=== PATIENT | male | born 1955 | race Hispanic/Latino ===

== ENCOUNTER 2018-10-02 22:38 | Emergency (ER) | payer MEDICAID, SELFPAY ==
[2018-10-02] MEDS ORDERED: TETANUS & DIPHTHERIA TOX,ADULT 0.5 ML VIAL ONE (23:05)
[2018-10-02] MEDS ORDERED: LIDOCAINE 1% MPF 5 ML VIAL ONE (23:05)
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
== END 2018-10-03 01:56 | disposition home or self-care (01) ==
LOC: ER 22:38
PROC: 0JQ00ZZ Repair Scalp Subcutaneous Tissue and Fascia, Open Approach (ICD-10-PCS; principal; 2018-10-02)
DX: S01.01XA Laceration without foreign body of scalp, initial encounter (principal); S00.90XA Unspecified superficial injury of unspecified part of head, initial encounter; V19.3XXA Pedal cyclist (driver) (passenger) injured in unspecified nontraffic accident, initial encounter; Y93.55 Activity, bike riding; I10 Essential (primary) hypertension; J45.909 Unspecified asthma, uncomplicated; Z23 Encounter for immunization
CPT/HCPCS: 70450; 72125; 90471; 90714; 99285

== ENCOUNTER 2018-10-03 16:47 | Emergency (ER) | payer SELFPAY ==
[2018-10-03] MEDS ORDERED: HYDROCODONE/APAP 10/325 TAB ONE (17:25)
--- NOTE | 2018-10-03 18:19 | RAD REPORT ---
EXAM DESCRIPTION: RAD - Shoulder Left 2 View - 10/03/2018 6:07 pm CLINICAL HISTORY: PAIN COMPARISON: No comparisons FINDINGS: Mild AC joint degenerative changes are present. No acute fracture or dislocation. The acro mion process is laterally downsloping with narrowing of the subacromial outlet.
--- NOTE | 2018-10-03 18:21 | RAD REPORT ---
EXAM DESCRIPTION: RAD - Elbow Right 3 View - 10/03/2018 6:07 pm CLINICAL HISTORY: PAIN COMPARISON: <Comparisons> FINDINGS: Pronounced degenerative change with deformity is seen involving the elbow. This limits sen sitivity for fracture. Within this limitation, no acute fractures demonstrated.
--- NOTE | 2018-10-03 18:21 | RAD REPORT ---
EXAM DESCRIPTION: RAD - Elbow Left 3 View - 10/03/2018 6:07 pm CLINICAL HISTORY: PAIN COMPARISON: <Comparisons> FINDINGS: Pronounced degenerative change involves the elbow. This limits radiographic sensitivity fo r fracture. Within this limitation, no acute fracture or dislocation identified.
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
[2018-10-06 15:42] VITALS: BP 187/94; TEMP 99.2; O2SAT 97
== END 2018-10-03 19:27 | disposition home or self-care (01) ==
LOC: ER 16:47
DX: M25.522 Pain in left elbow (principal); M25.521 Pain in right elbow; M25.512 Pain in left shoulder; J45.909 Unspecified asthma, uncomplicated; I10 Essential (primary) hypertension
CPT/HCPCS: 99284

== ENCOUNTER 2023-01-23 01:16 | Emergency (ER) | payer OTHER, SELFPAY ==
[2023-01-23] MEDS ORDERED: KETOROLAC 30 MG/ML INJ ONE (01:44)
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
--- NOTE | 2023-01-23 02:22 | ER ---
Nurse's Notes [facility] Name: Jabier Ford Age: 67 yrs Sex: Male : 1955 Arrival Date: 01/23/2023 Time: 01:16 Bed 17 Private MD: Diagnosis: Nondisplaced fracture of lateral condyle of right tibia, initial encounter for closed fracture Presentation: 01/23 01:29 Chief complaint: EMS states: Pt fell 2 days ago and continues to have right knee pain. jb4 Coronavirus screen: At this time, the client does not indicate any symptoms associated with coronavirus-19. Ebola Screen: No symptoms or risks identified at this time. Initial Sepsis Screen: Does the patient meet any 2 criteria? No. Patient's initial sepsis screen is negative. Does the patient have a suspected source of infection? No. Patient's initial sepsis screen is negative. Risk Assessment: Do you want to hurt yourself or someone else? Patient reports no desire to harm self or others. Onset of symptoms was January 21, 2023. Transition of care: patient was not received from another setting of care. 01:29 Method Of Arrival: EMS: [facility] jb4 01:29 Acuity: MONA 4 jb4 Historical: - Allergies: 01:32 No Known Allergies; jb4 - PMHx: 01:32 Arthritis; Asthma; Hypertension; jb4 Screenin:15 [facility] ED Fall Risk Assessment (Adult) History of falling in the last 3 months, jb4 including since admission No falls in past 3 months (0 pts) Confusion or Disorientation No (0 pts). Abuse screen: Denies threats or abuse. Nutritional screening: No deficits noted. Tuberculosis screening: No symptoms or risk factors identified. Assessment: 01:25 General: Appears in no apparent distress. uncomfortable, Behavior is calm, cooperative, jb4 appropriate for age. Pain: Complains of pain in right knee Pain does not radiate. Pain currently is 8 out of 10 on a pain scale. Neuro: Level of Consciousness is awake, alert, obeys commands, Oriented to person, place, time, situation. Cardiovascular: Patient's skin is warm and dry. Respiratory: Airway is patent Respiratory effort is even, unlabored, Respiratory pattern is regular, symmetrical. GI: No signs and/or symptoms were reported involving the gastrointestinal system. : No signs and/or symptoms were reported regarding the genitourinary system. EENT: No signs and/or symptoms were reported regarding the EENT system. Derm: Skin is intact, Skin is pink, warm \T\ dry. 02:55 Reassessment: Patient appears in no apparent distress at this time. Patient and/or jb4 family updated on plan of care and expected duration. Pain level reassessed. Patient is alert, oriented x 3, equal unlabored respirations, skin warm/dry/pink. Vital Signs: 01:29 BP 170 / 58; Pulse 66; Resp 16; Temp 99.1; Pulse Ox 97% ; Weight 75.75 kg; Height 5 ft. jb4 5 in. ; 02:15 BP 170 / 70; Pulse 63; Resp 16; Pulse Ox 98% on R/A; jb4 01:29 Body Mass Index 27.79 (75.75 kg, 165.1 cm) jb4 ED Course: 01:17 Patient arrived in ED. sb4 01:17 Freda Schwarz PA-C is PHCP. sb4 01:17 Tyson Pantoja MD is Attending Physician. sb4 01:32 Triage completed. jb4 01:32 Arm band placed on right wrist. jb4 01:34 Knee Right 3 View XRAY In Process Unspecified. EDMS 02:15 Patient has correct armband on for positive identification. Bed in low position. Call jb4 light in reach. Side rails up X 1. Client placed on continuous cardiac and pulse oximetry monitoring. NIBP monitoring applied. 02:20 Julio Braga MD is Referral Physician. sb4 02:57 Patient did not have IV access during this emergency room visit. jb4 02:58 No provider procedures requiring assistance completed. jb4 Administered Medications: 01:36 Drug: Ketorolac IM 30 mg IM once Route: IM; Site: left gluteus; jb4 Medication: 02:15 VIS not applicable for this client. jb4 Outcome: 02:22 Discharge ordered by . sb4 02:57 Discharged to home via wheelchair, with crutches, with friend, jb4 02:57 Condition: stable 02:57 Discharge instructions given to patient, Instructed on discharge instructions, follow up and referral plans. medication usage, Demonstrated understanding of instructions, follow-up care, medications, Prescriptions given X 1, 02:58 Patient left the ED. jb4 Signatures: Dispatcher [employer] Freddy Irizarry RN RN jb4 Freda Schwarz PA-C PAGracielaC sb4 Corrections: (The following items were deleted from the chart) 02:58 02:57 Discharge instructions given to patient, Instructed on discharge instructions, jb4 follow up and referral plans. Demonstrated understanding of instructions, follow-up care, Prescriptions given X jb4 02:58 02:57 Discharge instructions given to patient, Instructed on discharge instructions, jb4 follow up and referral plans. Demonstrated understanding of instructions, follow-up care, Prescriptions given X 1, jb4
[2023-01-23 03:02] VITALS: TEMP 99.1
[2023-01-23 03:04] VITALS: BP 170/70; O2SAT 98
--- NOTE | 2023-01-23 18:50 | RAD REPORT ---
EXAM DESCRIPTION: RAD - Knee Right 3 View - 01/23/2023 1:32 am CLINICAL HISTORY: The patient is 67 years old and is Male; Pain;Swelling TECHNIQUE: Three views of the right knee. COMPARISON: No relevant prior studies available. FINDINGS: Bones/joints: Possible cortical irregularity involving the lateral epicondyle. Severe degenerative changes and tricompartmental narrowing with osteophytosis in the knee. 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 Soft tissues: Unremarkable. IMPRESSION: Possible cortical irregularity involving the lateral epicondyle. Correlate with any co ncern for fracture. Electronically signed by: Gil Montana MD 01/23/2023 2:01 AM CDT Due to temporary technical issues with the PACS/Fluency reporting system, reports are being signed by the in house radiologists without review as a courtesy to insure prompt reporting. The interpreting radiologist is fully responsible for the content of the report.
== END 2023-01-23 02:58 | disposition home or self-care (01) ==
LOC: ER 01:16
DX: S82.124A Nondisplaced fracture of lateral condyle of right tibia, initial encounter for closed fracture (principal)
CPT/HCPCS: 96372; 99284

== ENCOUNTER → 2023-03-29 | Emergency (ER) | payer OTHER ==
[~2023-03-29] MED LIST: DOXYCYCLINE 100 MG CAP PO ONE; HYDRALAZINE HCL 20 MG/ML VIAL ONE; HYDROMORPHONE HCL 1 MG/ML INJ ONE; METHYLPREDNISOLONE 125 MG INJ ONE; MORPHINE 4 MG/ML SYR ONE; cloNIDine HCL 0.1 MG TAB ONE; lisinopriL 20 MG TAB ONE
--- NOTE | 2023-03-29 15:47 | RAD REPORT ---
[facility] DES[facility]23 3:32 pm CLINICAL HISTORY: left arm swelling COMPARISON: CHEST PA AND LAT 2 VIEW dated 04/24/2013; CHEST SINGLE VIEW dated 05/07/2012 TECHNIQUE: Portable AP view of the chest. FINDINGS: The lungs are clear. No pneumothorax or effusion. The cardiomediastinal contours are unre markable. IMPRESSION: No acute cardiopulmonary process.
[2023-03-29 15:56] LABS: Absolute Lymphocytes (CBC) 1.1 K/uL (0.7-4.9); Hematocrit 45.9 % (39.6-49.0); Lymphocytes % 11.1 % (15.3-44.8); MCV 94.2 fL (80-100); MPV 8.8 fL (7.6-11.3); Platelets 177 thou/uL (152-406); RBC Red Blood Cell Count 4.87 M/uL (4.33-5.43)
[2023-03-29 16:01] LABS: Protime INR 1.07
[2023-03-29 16:17] LABS: Albumin 3.9 g/dL (3.4-5.0); Bilirubin Total 0.7 mg/dL (0.2-1.0); Protein, Total 7.7 g/dL (6.4-8.2)
[2023-03-29 16:31] LABS: Specific Gravity 1.012 (1.005-1.030); Urine Bilirubin NEGATIVE (Negative); Urine Blood Negative (Negative); Urine Clarity Clear (Clear); Urine Color Light-Yellow (Yellow); Urine Glucose NEGATIVE (Negative); Urine Protein NEGATIVE (Negative); Urine Urobilinogen Normal (Normal)
--- NOTE | 2023-03-29 17:17 | RAD REPORT ---
EXAM DESCRIPTION: US - UPPER EXTREMITY VENOUS UNILATE - 03/29/2023 4:57 pm CLINICAL HISTORY: Swelling, pain COMPARISON: None. TECHNIQUE: Real-time sonographic evaluation of the left upper extremity deep venous system was perfo rmed. FINDINGS: Normal compressibility, flow augmentation, phasic flow and spontaneous flow is identified in the left upper extremity deep venous system. No intraluminal filling defects seen. IMPRESSION: No DVT in the left upper extremity.
--- NOTE | 2023-03-29 19:56 | ER ---
Nurse's Notes [facility] Name: Jbaier Ford Age: 68 yrs Sex: Male : 1955 Arrival Date: 03/29/2023 Time: 13:28 Bed 20 Private MD: Diagnosis: Hypertensive heart disease without heart failure;Left Hand and Forearm Swelling Presentation: 03/29 13:42 Chief complaint: EMS states: patient is having an arthritis flare up, does not take ko1 meds, left hand is swollen and red, left shoulder is painful as well. Coronavirus screen: At this time, the client does not indicate any symptoms associated with coronavirus-19. Ebola Screen: No symptoms or risks identified at this time. Initial Sepsis Screen: Does the patient meet any 2 criteria? No. Patient's initial sepsis screen is negative. Does the patient have a suspected source of infection? No. Patient's initial sepsis screen is negative. Risk Assessment: Do you want to hurt yourself or someone else? Patient reports no desire to harm self or others. Onset of symptoms was March 29, 2023. 13:42 Method Of Arrival: EMS: [facility] ko1 13:42 Acuity: MONA 3 ko1 Triage Assessment: 13:47 General: Appears uncomfortable, Behavior is calm, cooperative, appropriate for age. ko1 Pain: Complains of pain in anterior aspect of left shoulder, left wrist, left hand and posterior aspect of left shoulder. Historical: - Allergies: 13:47 No Known Allergies; ko1 - PMHx: 13:47 Arthritis; Asthma; Hypertension; ko1 - Immunization history:: Adult Immunizations unknown. - Social history:: Smoking status: Patient denies any tobacco usage or history of. Screenin:14 [facility] ED Fall Risk Assessment (Adult) History of falling in the last 3 months, ko1 including since admission No falls in past 3 months (0 pts) Confusion or Disorientation No (0 pts) Intoxicated or Sedated No (0 pts) Impaired Gait Yes (1 pt) Mobility Assist Device Used No (0 pt) Altered Elimination No (0 pt) Score/Fall Risk Level 0 - 2 = Low Risk Oriented to surroundings, Maintained a safe environment, Educated pt \T\ family on fall prevention, incl call for assistance when getting out of bed, Assessed \T\ reinforced patient's understanding of fall precautions, Provided non-skid footwear, Hourly rounding (assess needs \T\ fall precautionary measures) done, Used ambulatory aids as needed (educated on \T\ assisted with), Used gait belt as appropriate. Abuse screen: Denies threats or abuse. Denies injuries from another. Nutritional screening: No deficits noted. Tuberculosis screening: No symptoms or risk factors identified. Assessment: 16:16 General: Appears uncomfortable, Behavior is calm, cooperative, appropriate for age. ko1 Pain: Complains of pain in left arm and posterior aspect of left shoulder and left hand and left wrist and anterior aspect of left shoulder. Neuro: No deficits noted. Cardiovascular: No deficits noted. Respiratory: No deficits noted. GI: No deficits noted. : No deficits noted. EENT: No deficits noted. Derm: No deficits noted. Musculoskeletal: Swelling present in left hand and left wrist. Vital Signs: 13:42 BP 235 / 92; Pulse 70; Resp 16; Temp 97; Pulse Ox 100% ; Weight 72.57 kg; Height 5 ft. ko1 6 in. ; 16:14 BP 204 / 98; Pulse 77; Resp 18; Pulse Ox 98% ; ko1 16:39 BP 176 / 80; Pulse 74; Resp 18; Pulse Ox 100% ; ko1 17:09 BP 210 / 88; Pulse 64; Resp 16; Pulse Ox 97% ; ko1 18:04 BP 144 / 68; Pulse 66; Resp 18; Pulse Ox 98% ; ko1 18:41 BP 165 / 77; Pulse 74; Resp 15; Pulse Ox 99% ; ko1 19:15 BP 141 / 49; Pulse 63; Resp 18; Pulse Ox 98% ; nw1 20:00 BP 142 / 73; Pulse 72; Resp 18; Pulse Ox 96% on R/A; nw1 20:30 BP 138 / 69; Pulse 78; Pulse Ox 99% ; nw1 13:42 Body Mass Index 25.82 (72.57 kg, 167.64 cm) ko1 ED Course: 13:41 Patient arrived in ED. ko1 13:41 Rosario Uribe, RN is Primary Nurse. ko1 13:47 Triage completed. ko1 13:47 Arm band placed on right wrist. Patient placed in an exam room, on a stretcher, on ko1 pulse oximetry, Patient notified of wait time. 14:16 Alejandro Armando PA is PHCP. cp 14:17 Power Hampton MD is Attending Physician. cp 15:34 Chest Single View XRAY In Process Unspecified. EDMS 15:44 Inserted saline lock: 22 gauge in right forearm, using aseptic technique. Blood jl7 collected. 15:44 Initial lab(s) drawn, by me, sent to lab. First set of blood cultures drawn by me. jl7 15:45 Blood Culture Adult (2) Sent. ko1 15:45 CBC with Diff Sent. ko1 15:45 CMP Sent. ko1 15:45 Lactate w/ 2H reflex if indic. Sent. ko1 15:45 Protime (+inr) Sent. ko1 15:45 Ptt, Activated Sent. ko1 16:14 Patient has correct armband on for positive identification. Bed in low position. Call ko1 light in reach. Client placed on continuous cardiac and pulse oximetry monitoring. NIBP monitoring applied. air sampling and monitoring on. Door closed. Noise minimized. 16:14 No provider procedures requiring assistance completed. ko1 16:46 Blood Culture Adult (2) Sent. ko1 16:59 UPPER EXTREMITY VENOUS UNILATE In Process Unspecified. EDMS 21:15 IV discontinued, intact, bleeding controlled, No redness/swelling at site. Pressure nw1 dressing applied. 21:16 Provided Education on: POC/Discharge instructions. nw1 Administered Medications: 14:34 Drug: cloNIDine PO 0.2 mg PO once Route: PO; ko1 15:44 Drug: morphine IVP or IV 4 mg IVP once over 4 mins Route: IVP; Infused Over: 4 mins; ko1 Site: right forearm; 17:25 Drug: hydrALAZINE IVP 20 mg IVP once Route: IVP; Site: right forearm; ko1 17:25 Drug: morphine IVP or IV 4 mg IVP once over 4 mins Route: IVP; Infused Over: 4 mins; ko1 Site: right forearm; 20:25 Drug: HYDROmorphone IVP 1 mg IVP once Route: IVP; Site: right antecubital; nw1 20:40 Drug: MethylPrednisoLONE IVP 80 mg IVP once Route: IVP; Site: right antecubital; nw1 20:40 Drug: Lisinopril PO 20 mg PO once Route: PO; nw1 20:40 Drug: Doxycycline PO 100 mg PO once Route: PO; nw1 Medication: 16:14 VIS not applicable for this client. ko1 Outcome: 19:55 Discharge ordered by MD. cp 21:15 Discharged to home ambulatory, nw1 21:15 Condition: stable 21:15 Discharge instructions given to patient, Instructed on discharge instructions, follow up and referral plans. medication usage, Demonstrated understanding of instructions, follow-up care, medications, Prescriptions given X 3, 21:16 Patient left the ED. nw1 Signatures: Dispatcher [employer] EDMS Alejandro Armando PA PA cp Leal, Jahala RN RN jl7 Rosario Uribe RN RN ko1 Valencia Navarrete RN RN nw1 Corrections: (The following items were deleted from the chart) 16:16 15:45 Inserted saline lock: 22 gauge in right antecubital area, using aseptic ko1 technique. Blood collected. ko1
--- NOTE | 2023-03-29 19:56 | EDPHYS ---
Physician Documentation [facility] Name: Jabier Ford Age: 68 yrs Sex: Male : 1955 Arrival Date: 03/29/2023 Time: 13:28 Bed 20 Private MD: ED Physician Power Hampton HPI: 03/29 14:33 This 68 yrs old Male presents to ER via EMS with complaints of Left Hand and cp Left Arm Pain and Swelling. 14:33 The patient or guardian complains of pain, that is acute, swelling, tenderness. The cp complaints affect the left wrist and left hand and left forearm. 14:33 Context: resulted from flare of rheumatoid arthritis. Onset: The symptoms/episode cp began/occurred gradually, and became worse today. Treatment prior to arrival includes: no previous treatment. Associated signs and symptoms: Pertinent positives: erythema, swelling, sever pain, of the left hand and left wrist and left forearm, Pertinent negatives: fever, numbness, vomiting, injury, chest pain, shortness of breath. 14:33 Modifying factors: the symptoms are aggravated by movement, palpation. cp Historical: - Allergies: 13:47 No Known Allergies; ko1 - PMHx: 13:47 Arthritis; Asthma; Hypertension; ko1 - Immunization history:: Adult Immunizations unknown. - Social history:: Smoking status: Patient denies any tobacco usage or history of. ROS: 14:40 Constitutional: Negative for body aches, chills, fever, poor PO intake, cp 14:40 Eyes: Negative for injury, pain, redness, and discharge, cp 14:40 Neck: Negative for 14:40 Cardiovascular: Negative for chest pain, palpitations, 14:40 Respiratory: Negative for cough, shortness of breath, wheezing, 14:40 Abdomen/GI: Negative for abdominal pain, nausea, vomiting, and diarrhea, 14:40 MS/extremity: Positive for erythema, pain, swelling, tenderness, of the left hand and left wrist and left forearm, Negative for decreased range of motion, paresthesias, injury, 14:40 Neuro: Negative for altered mental status, dizziness, headache, numbness, weakness, 14:40 All other systems are negative, Exam: 14:45 Constitutional: The patient appears in no acute distress, alert, awake, cp non-diaphoretic, non-toxic, well developed, well nourished, uncomfortable, 14:45 Head/Face: Normocephalic, atraumatic. cp 14:45 Eyes: Periorbital structures: appear normal, Conjunctiva: normal, no exudate, no injection, Sclera: no appreciated abnormality, Lids and lashes: appear normal, bilaterally, 14:45 ENT: External ear(s): are unremarkable, Nose: is normal, Mouth: Lips: moist, Oral mucosa: pink and intact, moist, Posterior pharynx: Airway: no evidence of obstruction, patent, 14:45 Neck: ROM/movement: is normal, is supple, without pain, no range of motions limitations, no meningismus, no nuchal rigidity, 14:45 Chest/axilla: Inspection: normal, Palpation: is normal, no crepitus, no tenderness, 14:45 Cardiovascular: Rate: normal, Rhythm: regular, 14:45 Respiratory: the patient does not display signs of respiratory distress, Respirations: cp normal, no use of accessory muscles, no retractions, labored breathing, is not present, Breath sounds: are clear throughout, no decreased breath sounds, no stridor, no wheezing, 14:45 Abdomen/GI: Inspection: abdomen appears normal, Palpation: abdomen is soft and non-tender, in all quadrants, 14:45 Back: pain, is absent, 14:45 Musculoskeletal/extremity: Extremities: noted in the left hand and left arm: swelling and mild redness noted of dorsum left hand that extends proximally to distal forearm, marked tenderness to palpation, no open wounds of skin noted, 14:45 Neuro: Orientation: to person, place \T\ time. Mentation: is normal, Motor: moves all cp fours, Sensation: no obvious gross deficits, 16:00 ECG was reviewed by the Attending Physician. cp Vital Signs: 13:42 BP 235 / 92; Pulse 70; Resp 16; Temp 97; Pulse Ox 100% ; Weight 72.57 kg; Height 5 ft. ko1 6 in. ; 16:14 BP 204 / 98; Pulse 77; Resp 18; Pulse Ox 98% ; ko1 16:39 BP 176 / 80; Pulse 74; Resp 18; Pulse Ox 100% ; ko1 17:09 BP 210 / 88; Pulse 64; Resp 16; Pulse Ox 97% ; ko1 18:04 BP 144 / 68; Pulse 66; Resp 18; Pulse Ox 98% ; ko1 18:41 BP 165 / 77; Pulse 74; Resp 15; Pulse Ox 99% ; ko1 19:15 BP 141 / 49; Pulse 63; Resp 18; Pulse Ox 98% ; nw1 20:00 BP 142 / 73; Pulse 72; Resp 18; Pulse Ox 96% on R/A; nw1 20:30 BP 138 / 69; Pulse 78; Pulse Ox 99% ; nw1 13:42 Body Mass Index 25.82 (72.57 kg, 167.64 cm) ko1 MDM: 14:17 Patient medically screened. cp 15:00 Differential diagnosis: DVT, sepsis, cellulitis. cp 19:55 Data reviewed: vital signs, nurses notes, lab test result(s), EKG, radiologic studies, cp plain films, ultrasound. 19:55 Consideration of Admission/Observation Escalation of care including cp admission/observation considered. I considered the following discharge prescriptions or medication management in the emergency department Medications were administered in the Emergency Department. See MAR. Independent interpretation of the following test(s) in the Emergency Department EKG: See my EKG interpretation above. Counseling: I had a detailed discussion with the patient and/or guardian regarding the historical points, exam findings, and any diagnostic results supporting the discharge/admit diagnosis, the presence of at least one elevated blood pressure reading (>120/80) during this emergency department visit, lab results, radiology results, the need for outpatient follow up, a family practitioner, to return to the emergency department if symptoms worsen or persist or if there are any questions or concerns that arise at home. Response to treatment: the patient's symptoms have markedly improved after treatment, and as a result, I will discharge patient. 03/29 14:29 Order name: Blood Culture Adult (2) cp 03/29 14:29 Order name: CBC with Diff; Complete Time: 16:30 cp 03/29 16:30 Interpretation: Normal except: SAUL% 78.1; LYM% 11.1. cp 03/29 14:29 Order name: CMP; Complete Time: 16:30 cp 03/29 16:30 Interpretation: Normal except: GLUC 107. 03/29 14:29 Order name: Lactate w/ 2H reflex if indic.; Complete Time: 16:30 03/29 14:29 Order name: Protime (+inr); Complete Time: 16:30 03/29 14:29 Order name: Ptt, Activated; Complete Time: 16:30 cp 03/29 14:29 Order name: Urinalysis w/ reflexes; Complete Time: 17:23 cp 03/29 14:29 Order name: Chest Single View XRAY; Complete Time: 16:30 cp 03/29 16:39 Order name: UPPER EXTREMITY VENOUS UNILATE; Complete Time: 17:23 EDMS 03/29 17:23 Interpretation: Report reviewed. 03/29 14:29 Order name: EKG; Complete Time: 14:30 cp 03/29 14:29 Order name: Accucheck; Complete Time: 15:45 cp 03/29 14:29 Order name: Cardiac monitoring; Complete Time: 14:30 cp 03/29 14:29 Order name: EKG - Nurse/Tech; Complete Time: 16:35 cp 03/29 14:29 Order name: IV Saline Lock - Large Bore; Complete Time: 15:45 cp 03/29 14:29 Order name: Labs collected and sent; Complete Time: 15:45 03/29 14:29 Order name: O2 Per Protocol; Complete Time: 14:30 03/29 14:29 Order name: O2 Sat Monitoring; Complete Time: 14:30 03/29 14:29 Order name: Vital Signs; Complete Time: 14:30 cp EC:00 Rate is 65 beats/min. Rhythm is regular. AK interval is normal. QRS interval is normal. cp QT interval is normal. T waves are Inverted in leads III, aVR. Interpreted by me. Reviewed by me. Administered Medications: 14:34 Drug: cloNIDine PO 0.2 mg PO once Route: PO; ko1 15:44 Drug: morphine IVP or IV 4 mg IVP once over 4 mins Route: IVP; Infused Over: 4 mins; ko1 Site: right forearm; 17:25 Drug: hydrALAZINE IVP 20 mg IVP once Route: IVP; Site: right forearm; ko1 17:25 Drug: morphine IVP or IV 4 mg IVP once over 4 mins Route: IVP; Infused Over: 4 mins; ko1 Site: right forearm; 20:25 Drug: HYDROmorphone IVP 1 mg IVP once Route: IVP; Site: right antecubital; nw1 20:40 Drug: MethylPrednisoLONE IVP 80 mg IVP once Route: IVP; Site: right antecubital; nw1 20:40 Drug: Lisinopril PO 20 mg PO once Route: PO; nw1 20:40 Drug: Doxycycline PO 100 mg PO once Route: PO; nw1 Disposition: 03/30 07:08 Co-signature as Attending Physician, Power Hampton MD I reviewed the patient's care rt provided by the Advanced Practice Provider and agree with the diagnosis and treatment plan. Disposition Summary: 03/29/23 19:55 Discharge Ordered Notes: Location: Home cp Problem: new cp Symptoms: have improved cp Condition: Stable cp Diagnosis - Hypertensive heart disease without heart failure cp - Left Hand and Forearm Swelling cp Followup: cp - With: Private Physician - When: 2 - 3 days - Reason: Recheck today's complaints Discharge Instructions: - Discharge Summary Sheet cp - Hypertension, Adult cp - Aspirin and Your Heart cp - Form - Blood Pressure Record Sheet cp - How to Take Your Blood Pressure cp Forms: - Medication Reconciliation Form cp - Thank You Letter cp - Antibiotic Education cp - Prescription Opioid Use cp - Patient Portal Instructions cp - Leadership Thank You Letter cp Prescriptions: - indomethacin 50 mg Oral capsule - take 1 capsule ORAL route 2 times per day administer with food or milk; 15 cp capsule; Refills: 0, Product Selection Permitted - Doxycycline Hyclate 100 mg Oral Tablet - take 1 tablet ORAL route every 12 hours; 20 tablet; Refills: 0, Product cp Selection Permitted - Lisinopril 20 mg Oral Tablet - take 1 tablet ORAL route once daily; 20 tablet; Refills: 0, Product Selection cp Permitted - Medrol (Jayden) 4 mg Oral Tablets, Dose Pack - take 1 tablet ORAL route as directed - follow package instructions; 1 packet; cp Refills: 0, Product Selection Permitted Signatures: Dispatcher [employer] EDMS Alejandro Armando PA PA cp Rosario Uribe RN RN ko1 Power Hampton MD MD rt Valencia Navarrete RN RN nw1 Corrections: (The following items were deleted from the chart) 03/29 16:39 14:30 Extremity Venous Uni [email or web address] ordered. EDMS EDMS 20:34 20:33 This 68 yrs old Male presents to ER via EMS with complaints of Left Hand cp and Left Arm Pain and Swelling. cp
[2023-03-29 23:45] VITALS: TEMP 97; O2SAT 99
[2023-03-29 23:53] VITALS: BP 138/69
== END ==
LOC: ER 13:28
DX: I11.9 Hypertensive heart disease without heart failure (principal); R22.32 Localized swelling, mass and lump, left upper limb; I10 Essential (primary) hypertension
CPT/HCPCS: 87040; 85025; 36415; 85610; 83605; 85730; 81003; 80053; 71045; 93971; 99285; J0360; J1170; J2930; 93005

== ENCOUNTER 2024-01-26 10:42 | Inpatient (IN) | payer OTHER ==
--- NOTE | 2024-01-26 11:33 | RAD REPORT ---
EXAMINATION: ONE VIEW CHEST XR CLINICAL INDICATION: Chest pain;Dyspnea TECHNIQUE: Frontal chest projection is submitted. Examination is limited by patient positioning and t echnique. COMPARISON: 03/29/2023 FINDINGS: Mild bilateral pulmonary opacities are seen likely pulmonary edema. The heart is upper limit of ten l in size. No displaced fractures identified. IMPRESSION: Mild CHF versus volume overload pattern is suspected.
[2024-01-26 13:00] LABS: Absolute Basophils 0.1 K/uL (0-0.5); Absolute Eosinophils 0.2 K/uL (0-0.5); Absolute Lymphocytes (CBC) 1.5 K/uL (0.7-4.9); Absolute Monocytes 0.8 K/uL (0.1-1.3); Absolute Neutrophil 5.5 K/uL (1.8-8.0); Basophils % 1.3 % (0-1.3); Eosinophils % 2.1 % (0-4.4); Hematocrit 46.9 % (39.6-49.0); Hemoglobin 15.3 g/dL (13.6-17.9); Lymphocytes % 18.3 % (15.3-44.8); MCH 31.1 pg (27.0-35.0); MCHC 32.7 g/dL (32.0-36.0); MCV 95.1 fL (80-100); MPV 9.9 fL (7.6-11.3); Monocytes % 10.2 % (3.3-12.3); Neutrophils % 68.1 % (41.7-73.7); Platelets 156 thou/uL (152-406); RBC Red Blood Cell Count 4.93 M/uL (4.33-5.43); Red Cell Distribution Width 14.5 % (12.1-15.2)
[2024-01-26 13:22] LABS: Anion Gap 10.2 mEq/L (5.0-15.0)
[2024-01-26 13:23] LABS: Potassium 4.2 mEq/L (3.5-5.1)
[2024-01-26 13:24] LABS: Troponin High Sensitivity 5711.1 pg/mL (<58.9)
--- NOTE | 2024-01-26 13:36 | ER ---
Nurse's Notes [facility] Name: Jabier Ford Age: 68 yrs Sex: Male : 1955 Arrival Date: 01/26/2024 Time: 10:42 Bed 20 Private MD: Diagnosis: Subsequent non-ST elevation (NSTEMI) myocardial infarction;Unspecified atrial fibrillation;Chronic combined systolic (congestive) and diastolic (congestive) heart failure Presentation: 01/25 11:04 Chief complaint: EMS states: Chest pressure and SOB, HR between 80-160, BP 150s/80s, ph Spo2 98% RA. Coronavirus screen: Vaccine status: Patient reports receiving the 2nd dose of the covid vaccine. Ebola Screen: No symptoms or risks identified at this time. Initial Sepsis Screen: Does the patient meet any 2 criteria? No. Patient's initial sepsis screen is negative. Does the patient have a suspected source of infection? No. Patient's initial sepsis screen is negative. Risk Assessment: Do you want to hurt yourself or someone else? Patient reports no desire to harm self or others. 11:04 Method Of Arrival: EMS: [facility] ph 11:04 Acuity: MONA 2 ph 11:04 Onset of symptoms was January 26, 2024. ph Historical: - Allergies: 11:05 No Known Allergies; ph - PMHx: 11:05 Arthritis; Asthma; Hypertension; ph - Immunization history:: Adult Immunizations unknown. - Infectious Disease History:: Denies. - Social history:: Smoking status: Patient denies any tobacco usage or history of. - Family history:: not pertinent. - Hospitalizations: : No recent hospitalization is reported. Screenin:24 [facility] ED Fall Risk Assessment (Adult) History of falling in the last 3 months, ph including since admission No falls in past 3 months (0 pts) Confusion or Disorientation No (0 pts) Intoxicated or Sedated No (0 pts) Impaired Gait No (0 pts) Mobility Assist Device Used No (0 pt) Altered Elimination No (0 pt) Score/Fall Risk Level 0 - 2 = Low Risk Oriented to surroundings, Maintained a safe environment, Hourly rounding (assess needs \T\ fall precautionary measures) done. Abuse screen: Denies threats or abuse. Denies injuries from another. Nutritional screening: No deficits noted. Tuberculosis screening: No symptoms or risk factors identified. Assessment: 12:54 Reassessment: No changes from previously documented assessment. Patient and/or family ll1 updated on plan of care and expected duration. Pain level reassessed. 19:59 Reassessment: Patient appears in no apparent distress at this time. Patient and/or jb4 family updated on plan of care and expected duration. Pain level reassessed. Patient is alert, oriented x 3, equal unlabored respirations, skin warm/dry/pink. Report given to EMS. Heparin drip adjusted per protocol prior to leaving. Vital Signs: 11:04 BP 135 / 100; Pulse 104; Resp 18; Temp 97.5; Pulse Ox 98% on R/A; Weight 83.91 kg; ph Height 5 ft. 5 in. ; 12:00 BP 145 / 74; Pulse 86; Resp 18; Pulse Ox 97% on R/A; ph 13:15 BP 137 / 81; Pulse 89; Resp 16; Pulse Ox 99% on R/A; ph 14:36 BP 120 / 82; Pulse 93; Resp 20; Pulse Ox 98% on R/A; ph 15:30 BP 111 / 62; Pulse 82; Resp 18; Temp 97.8; Pulse Ox 97% ; ph 16:29 BP 117 / 68; Pulse 83; Resp 18; Pulse Ox 98% on R/A; ph 19:00 BP 121 / 86; Pulse 87; Resp 16; Pulse Ox 97% on R/A; jb4 11:04 Body Mass Index 30.79 (83.91 kg, 165.1 cm) ph ED Course: 10:48 Patient arrived in ED. bd 10:48 Kwan Archer MD is Attending Physician. rn 11:03 Martita Ballesteros, ARIS is Primary Nurse. ph 11:05 Triage completed. ph 11:06 Arm band placed on Patient placed in an exam room, on a stretcher, on bus driver/monitor, ph on pulse oximetry. 11:10 EKG done, by ED staff, reviewed by Kwan Archer MD. ph 11:26 XRAY Chest (1 view) In Process Unspecified. EDMS 11:30 ekg monitor tech on. Pulse ox on. NIBP on. Door closed. Noise minimized. ph 11:53 Missed attempt(s): 22 gauge in right forearm. Missed attempt(s): 22 gauge in left ph antecubital area. Bleeding controlled, band aid applied, catheter tip intact. 12:49 Initial lab(s) drawn, by ED staff, sent to lab. Inserted saline lock: 24 gauge in right ph hand, using aseptic technique. Blood collected. Flushed with 10 mL NS. 13:36 Luisito Archer MD is Hospitalizing Provider. rn 13:37 Mabel Asif MD is Hospitalizing Provider. rn 13:45 CT Chest For PE Angio In Process Unspecified. EDMS 16:26 Patient has correct armband on for positive identification. Bed in low position. Call light in reach. Side rails up X 1. 16:30 No provider procedures requiring assistance completed. Patient admitted, IV remains in ph place. 19:00 Provided Education on: need for transfer. jb4 Administered Medications: 14:32 Drug: Heparin ([place] Drip) 12 units/kg/[place] - ([place] [address] units, D5W IV 500 ml) IV at ph calculated rate Per protocol; Max initial rate 1000 units/hr {Co-Signature: sharonda (Mony Quinones RN).} Route: IV; Rate: calculated rate; Site: right hand; 20:01 Follow up: Response: No adverse reaction; IV Status: Infusion continued upon transfer jb4 14:33 Drug: Heparin (HI-Bolus No thrombolytic) - HEParin IVP 60 units/kg IVP once; Max 5000 ph units {Co-Signature: sharonda (Mony Quinones RN).} Route: IVP; Site: right hand; 14:35 Drug: Furosemide IVP 40 mg IVP once; give over 2 minutes Route: IVP; Site: right ph forearm; 14:37 Drug: Aspirin PO Chewable Tablet 324 mg PO once; 81 mg tablets x 4 Route: PO; ph Medication: 16:25 VIS not applicable for this client. ph Outcome: 13:36 Decision to Hospitalize by Provider. rn 19:58 ER care complete, transfer ordered by . lg3 20:01 Transferred by ground EMS to [facility], Transfer form completed. jb4 X-rays sent w/ patient. 20:01 Condition: stable 20:01 Discharge instructions given to patient, Instructed on the need for transfer, Demonstrated understanding of instructions, 20:01 Patient left the ED. jb4 Signatures: Dispatcher [employer] Radha Olmedo Roman, MD MD rn Ballesteros, Martita, RN RN ph Ferddy Coleman RN RN jb4 Batool Wilson RN RN lg3 Polo Sandoval RN RN ll1 Stacie, Mony Capps RN mb9
--- NOTE | 2024-01-26 13:37 | EDPHYS ---
Physician Documentation [facility] Name: Jabier Ford Age: 68 yrs Sex: Male : 1955 Arrival Date: 01/26/2024 Time: 10:42 Bed 20 Private MD: ED Physician Kwan Archer HPI: 01/25 11:52 This 68 yrs old Male presents to ER via EMS with complaints of sob, chest pain.rn 11:52 The patient has shortness of breath at rest, with light activity. Onset: The rn symptoms/episode began/occurred 3 day(s) ago. Duration: The symptoms are continuous. The patient's shortness of breath is aggravated by exertion, light activity, talking, walking, is alleviated by rest. Associated signs and symptoms: Pertinent positives: chest pain, productive cough, Pertinent negatives: fever, hemoptysis. Severity of symptoms: At their worst the symptoms were moderate in the emergency department the symptoms are unchanged. The patient has not experienced similar symptoms in the past. Patient reports shortness of breath for the last 2 to 3 days, associated with chest pain with deep inspiration. Patient denies previous cardiac history and no heart failure no intubation. Patient denies arrhythmia. No medication changes. Denies fever but does report productive cough with white sputum. No lower extremity swelling. No abdominal or back pain.. Historical: - Allergies: 11:05 No Known Allergies; ph - PMHx: 11:05 Arthritis; Asthma; Hypertension; ph - Immunization history:: Adult Immunizations unknown. - Infectious Disease History:: Denies. - Social history:: Smoking status: Patient denies any tobacco usage or history of. - Family history:: not pertinent. - Hospitalizations: : No recent hospitalization is reported. ROS: 11:52 Constitutional: Negative for fever, chills, and weight loss, Cardiovascular: Negative rn for chest pain, palpitations, and edema, Respiratory: Negative for shortness of breath, cough, wheezing, and pleuritic chest pain, Abdomen/GI: Negative for abdominal pain, nausea, vomiting, diarrhea, and constipation, Skin: Negative for injury, rash, and discoloration, Neuro: Negative for headache, weakness, numbness, tingling, and seizure, Exam: 11:52 Constitutional: This is a well developed, well nourished patient who is awake, alert, rn mild tachypnea ENT: No stridor Cardiovascular: Tachycardic, irregular Respiratory: Mild tachypnea Abdomen/GI: Soft, non-tender MS/ Extremity: Pulses equal, no cyanosis. Neuro: Awake and alert, GCS 15 12:07 ECG was reviewed by the Attending Physician. rn Vital Signs: 11:04 BP 135 / 100; Pulse 104; Resp 18; Temp 97.5; Pulse Ox 98% on R/A; Weight 83.91 kg; ph Height 5 ft. 5 in. ; 12:00 BP 145 / 74; Pulse 86; Resp 18; Pulse Ox 97% on R/A; ph 13:15 BP 137 / 81; Pulse 89; Resp 16; Pulse Ox 99% on R/A; ph 14:36 BP 120 / 82; Pulse 93; Resp 20; Pulse Ox 98% on R/A; ph 15:30 BP 111 / 62; Pulse 82; Resp 18; Temp 97.8; Pulse Ox 97% ; ph 16:29 BP 117 / 68; Pulse 83; Resp 18; Pulse Ox 98% on R/A; ph 19:00 BP 121 / 86; Pulse 87; Resp 16; Pulse Ox 97% on R/A; jb4 11:04 Body Mass Index 30.79 (83.91 kg, 165.1 cm) ph MDM: 10:48 Medical Screening Exam initiated rn 13:35 Differential diagnosis: CHF exacerbation, Myocardial Infarction pneumonia, Pneumothorax rn pulmonary edema, Pulmonary Embolism. Data reviewed: vital signs, nurses notes, lab test result(s), EKG, radiologic studies, plain films, and as a result, I will admit patient. Consideration of Admission/Observation Patient was admitted/placed on observation. Escalation of care including admission/observation considered. Independent interpretation of the following test(s) in the Emergency Department X-Ray: My interpretation is Chest x-ray images show mild pulmonary edema per my interpretation. Counseling: I had a detailed discussion with the patient and/or guardian regarding the historical points, exam findings, and any diagnostic results supporting the discharge/admit diagnosis, lab results, radiology results, the need for further work-up and treatment in the hospital. 01/25 10:56 Order name: Basic Metabolic Panel; Complete Time: 13:29 rn 01/25 10:56 Order name: CBC with Diff; Complete Time: 13:29 rn 01/25 10:56 Order name: NT PRO-BNP; Complete Time: 13:29 rn 01/25 10:56 Order name: Troponin HS; Complete Time: 13:29 rn 01/25 13:49 Order name: Ptt, Activated ph 01/25 14:18 Order name: Protime (+INR) EDMS 01/25 14:57 Order name: Protime (+INR) EDMS 01/25 14:57 Order name: PTT, Activated Partial Thromb EDMS 01/25 14:57 Order name: Basic Metabolic Panel EDMS 01/25 14:57 Order name: Basic Metabolic Panel EDMS 01/25 14:57 Order name: Basic Metabolic Panel EDMS 01/25 14:57 Order name: Basic Metabolic Panel EDMS 01/25 14:57 Order name: CBC with Automated Diff EDMS 01/25 14:57 Order name: CBC with Automated Diff EDMS 01/25 14:57 Order name: CBC with Automated Diff EDMS 01/25 14:57 Order name: CBC with Automated Diff EDMS 01/25 14:57 Order name: Lipid Profile EDMS 01/25 14:57 Order name: Lipid Profile EDMS 01/25 14:57 Order name: Troponin High Sensitivity EDMS 01/25 14:57 Order name: Troponin High Sensitivity EDMS 01/25 14:57 Order name: Troponin High Sensitivity EDMS 01/25 14:57 Order name: Troponin High Sensitivity EDMS 01/25 19:08 Order name: PTT, Activated Partial Thromb EDMS 01/25 10:56 Order name: XRAY Chest (1 view); Complete Time: 11:51 rn 01/25 10:56 Order name: CT Chest For PE Angio; Complete Time: 14:17 rn 01/25 14:57 Order name: Echo with Doppler EDMS 01/25 14:56 Order name: CONS Physician Consult EDMS 01/25 10:56 Order name: Cardiac monitoring; Complete Time: 11:03 rn 01/25 10:56 Order name: EKG - Nurse/Tech; Complete Time: 11:03 rn 01/25 10:56 Order name: IV Saline Lock; Complete Time: 12:53 rn 01/25 10:56 Order name: Labs collected and sent; Complete Time: 12:53 rn 01/25 10:56 Order name: O2 Per Protocol; Complete Time: 11:03 rn 01/25 10:56 Order name: O2 Sat Monitoring; Complete Time: 11:03 rn EC:07 Rate is 99 beats/min. Rhythm is irregularly irregular. QRS [place] is Normal. LA interval rn is normal. QRS interval is normal. QT interval is normal. No Q waves. T waves are Normal. No ST changes noted. Clinical impression: Atrial Fibrillation. Interpreted by me. Reviewed by me. Administered Medications: 14:32 Drug: Heparin (MO Drip) 12 units/kg/[place] - ([place] [address] units, D5W IV 500 ml) IV at ph calculated rate Per protocol; Max initial rate 1000 units/hr {Co-Signature: sharonda (Mony Quinones RN).} Route: IV; Rate: calculated rate; Site: right hand; 20:01 Follow up: Response: No adverse reaction; IV Status: Infusion continued upon transfer jb4 14:33 Drug: Heparin (MO-Bolus No thrombolytic) - HEParin IVP 60 units/kg IVP once; Max 5000 ph units {Co-Signature: sharonda (Mony Quinones RN).} Route: IVP; Site: right hand; 14:35 Drug: Furosemide IVP 40 mg IVP once; give over 2 minutes Route: IVP; Site: right ph forearm; 14:37 Drug: Aspirin PO Chewable Tablet 324 mg PO once; 81 mg tablets x 4 Route: PO; ph Disposition: 13:35 Critical Care:. rn Disposition Summary: 01/26/24 19:58 Transfer Ordered Notes: Transfer Location: [facility] lg Reason: Higher level of care lg3 Condition: Stable(01/26/24 19:58) lg3 Accepting Physician: [facility](01/26/24 20:01) jb4 Diagnosis - Subsequent non-ST elevation (NSTEMI) myocardial infarction(01/26/24 19:58) lg3 - Unspecified atrial fibrillation(01/26/24 19:59) lg3 - Chronic combined systolic (congestive) and diastolic (congestive) heart failure lg3 Forms: - Medication Reconciliation Form lg3 - SBAR form lg3 Critical care time excluding procedures: 13:35 Critical care time: Bedside Care: 35 minutes. Total time: 35 minutes rn Signatures: Dispatcher [employer] EDKwan Rosas MD MD rn Hall, Patricia, RN RN ph Bryson, James, RN RN jb4 Batool Wilson, RN RN lg3 Polo Sandoval, RN RN ll1 Mony Quinones RN mb9 Corrections: (The following items were deleted from the chart) 10:57 10:57 BASIC METABOLIC PANEL+C.LAB.BRZ ordered. EDMS EDMS 10:57 10:57 CBC+H.LAB.BRZ ordered. EDMS EDMS 10:57 10:57 PROBNP+C.LAB.BRZ ordered. EDMS EDMS 10:57 10:57 Troponin High Sensitivity+C.LAB.BRZ ordered. EDMS EDMS 10:57 10:57 Chest Single View+RAD.RAD.BRZ ordered. EDMS EDMS 10:57 10:57 Chest For PE Angio+CT.RAD.BRZ ordered. EDMS EDMS 13:37 13:36 Luisito Archer rn rn 14:18 10:57 PROTIME (+INR)+COAG.LAB.BRZ ordered. EDMS EDMS 16:24 13:36 rn ll1 19:58 13:36 Inpatient Admission rn lg3 19:58 13:36 Telemetry/MedSurg (Inpatient) rn lg3 19:58 13:36 Stable rn lg3 19:58 13:36 new rn lg3 19:58 13:36 have improved rn lg3 19:58 13:36 Standard rn lg3 19:58 13:36 Subsequent non-ST elevation (NSTEMI) myocardial infarction rn lg3 19:58 13:36 Acute pulmonary edema rn lg3 19:58 13:36 Unspecified atrial fibrillation rn lg3 19:58 13:37 Mabel Asif rn lg3 19:58 16:24 211 ll1 lg3 19:59 19:58 [facility] lg3 lg3 20:01 19:59 [facility] lg3 jb4
--- NOTE | 2024-01-26 14:02 | RAD REPORT ---
EXAMINATION: CTA CHEST PE CLINICAL INDICATION: Male, 68 years old. Chest pain;Dyspnea TECHNIQUE: This examination was performed according to an angiographic protocol with 3D post-processi ng. This involves 3D reconstructions, MIPs, volume rendered images and/or shaded surface rendering. One or more of the following dose reduction techniques were used: Automated exposure control, adjustm ent of the mA and/or kV according to patient size, and/or iterative reconstruction. Unless otherwise specified, incidental findings do not require dedicated imaging follow-up. [id number]. COMPARISON: Same-day chest radiograph FINDINGS: LOWER NECK: Visualized thyroid gland and soft tissues are normal. LUNGS AND AIRWAYS: Small nonspecific focus of groundglass opacities in the posterior aspect of right upper lobe. Limited by motion. Possible mild interstitial edema is difficult to assess due to motion. No consolidative airspace disease. PLEURA: No pleural effusion. No pneumothorax. Hemidiaphragms are normally positioned. MEDIASTINUM AND LYMPH NODES: No mediastinal mass or fluid collection. Normal size mediastinal, hilar, and axillary lymph nodes. THORACIC AORTA: Normal caliber and configuration. PULMONARY ARTERIES: No evidence of pulmonary embolism. The subsegmental pulmonary arteries cannot be assessed due to motion. HEART: Cardiomegaly. Multivessel coronary disease. OSSEOUS STRUCTURES AND CHEST WALL: Intact. UPPER ABDOMEN: No significant abnormalities. IMPRESSION: No evidence of pulmonary emboli to the segmental level. Significantly limited due to motion artifact. Possible mild pulmonary edema.
[2024-01-26] MEDS ORDERED: ASPIRIN EC 81 MG TAB PO ONE (14:08)
[2024-01-26] MEDS ORDERED: HEPARIN 5000 UNIT/ML 1 ML VIAL ONE (14:08)
[2024-01-26] MEDS ORDERED: HEPARIN/D5W 25,000 UNIT/500 ML BAG IV ONE (14:09)
[2024-01-26 14:25] LABS: PT Prothrombin Time 11.9 SECONDS (9.4-12.5); PTT, Activated Partial Thromb 31.4 SECONDS (24.3-36.9); Protime INR 1.06
[2024-01-26] MEDS ORDERED: FUROSEMIDE 40 MG/4 ML VIAL ONE (14:26)
--- NOTE | 2024-01-26 14:45 | P.HP ---
Certification for Inpatient Patient admitted to: Inpatient With expected LOS: >2 Midnights Practitioner: I am a practitioner with admitting privileges, knowledge of patient current condition, hospital course, and medical plan of care. Services: Services provided to patient in accordance with Admission requirements found in Title 42 Section 412.3 of the Code of Federal Regulations Patient History Date of Service: 01/26/24 Reason for admission: NSTEMI, A-fib, CHF History of Present Illness: Mr. Ford is a 68-year-old gentleman with a past medical history of hypertension and arthritis. While lying in bed at 04 100 he began with chest pain; pressure in nature radiating to his left arm with shortness of breath. Patient denies nausea, vomiting, diaphoresis, or diarrhea. Patient presented to the emergency department at his PCP direction and will be admitted for NSTEMI, A-fib, and CHF with consult to cardiology. Initial troponin 5711 at 1324 Chest x-ray/CT chest for PE: No evidence of PE but positive for pulmonary edema. BNP 3689. Lasix given IV in ED Allergies No Known Allergies Allergy (Unverified 05/07/12 21:46) Home medications list reviewed: Yes (Amlodipine, indomethacin) - Past Medical/Surgical History Diabetic: No -: Hypertension -: Arthritis -: Abdominal surgery and hernia repair Psychosocial/ Personal History: History of insomnia - Family History Family History: Reviewed- Non-Contributory - Social History Smoking Status: Never smoker Alcohol use: Yes CD- Drugs: No Caffeine use: Yes Place of Residence: Home Review of Systems 10-point ROS is otherwise unremarkable General: As per HPI Eyes: Unremarkable ENT: Unremarkable Respiratory: Shortness of Breath, SOB with Excertion Cardiovascular: Chest Pain, Palpitations Gastrointestinal: Unremarkable Genitourinary: Unremarkable Musculoskeletal: Unremarkable Integumentary: Unremarkable Neurological: Unremarkable Lymphatics: Unremarkable Physical Examination - Physical Exam General: Alert, In no apparent distress, Oriented x3 HEENT: Atraumatic, Normocephalic Neck: Supple Respiratory: Normal air movement Cardiovascular: No edema, Irregular heart rate/rhythm Capillary refill: <2 Seconds Gastrointestinal: Soft and benign, Other (Well-healed scar) Musculoskeletal: No clubbing, No swelling, Other (Obvious arthritis at joints) Integumentary: No rashes Neurological: Normal speech, Normal tone, Normal affect Lymphatics: No axilla or inguinal lymphadenopathy External genitalia: Deferred Rectal: Deferred - Studies Laboratory Data (last 24 hrs) 01/26/24 01/26/24 01/26/24 14:05 12:45 12:45 WBC 8.00 Hgb 15.3 Hct 46.9 Plt Count 156 PT 11.9 Cancelled INR 1.06 Cancelled APTT 31.4 Sodium Potassium BUN Creatinine Glucose 01/26/24 12:45 WBC Hgb Hct Plt Count PT INR APTT Sodium 137 Potassium 4.2 BUN 11 Creatinine 0.87 Glucose 105 Assessment and Plan - Plan NSTEMI A-fib - new onset CHF Serial troponins and EKG Appreciate consultation from cardiology Echocardiogram if cardiology is agreeable Antiplatelet therapy, anticoagulation, beta-reg, statin, and O2 as needed IV morphine for pain control Nitro as needed Continue medications for blood pressure control Repeat chest x-ray GI and DVT prophylaxis Discharge Plan: Home Plan to discharge in: Greater than 2 days - Advance Directives Does patient have a Living Will: No Does patient have a Durable POA for Healthcare: No - Code Status/Comfort Care Code Status Assessed: Yes (Full)
[2024-01-26] MEDS ORDERED: MORPHINE 4 MG/ML SYR IV PRN (14:48)
[2024-01-26] MEDS ORDERED: ACETAMINOPHEN 500 MG TAB PO PRN (14:48)
[2024-01-26] MEDS ORDERED: SODIUM CHLORIDE 0.9% 10ML INJ IV PRN (14:55)
[2024-01-26] MEDS ORDERED: HEPARIN/D5W 25,000 UNIT/500 ML BAG IV SCH (17:00)
[2024-01-26 17:13] VITALS: BMI 30.7
--- NOTE | 2024-01-26 17:42 | P.DS ---
Admission Date: 01/26/24 Discharge Date: 01/26/24 Disposition: TRANSFER TO [facility] Reason for Admission: NSTEMI, A-fib, CHF Consultations: Dr. Jenkins Brief History of Present Illness: Mr. Ford is a 68-year-old gentleman with a past medical history of hypertension and arthritis. While lying in bed at 04 100 he began with chest pain; pressure in nature radiating to his left arm with shortness of breath. Patient denies na usea, vomiting, diaphoresis, or diarrhea. Patient presented to the emergency department at his PCP direction and will be admitted for NSTEMI, A-fib, and CHF with consult to cardiology. Initial troponin 5711 at 1324 Chest x-ray/CT chest for PE: No evidence of PE but positive for pulmonary edema. BNP 3689. Lasix given IV in ED Hospital Course: Discussed Mr. Ford with Dr. Jenkins, Cardiology. The cardiac component lab tech was just shut down until further notice. He will need an urgent LHC. Heparin drip initiated and transfer initiated. Discussed case with Dr. Guidry. He accepts pt in transfer to [facility]. Awaiting administrative acceptance. General: Alert, In no apparent distress, Oriented x3 HEENT: Atraumatic, Normocephalic Neck: Supple, 2+ carotid pulse no bruit Respiratory: Normal air movement Cardiovascular: Irregular heart rate/rhythm Capillary refill: <2 Seconds Gastrointestinal: Normal bowel sounds Musculoskeletal: No clubbing, Other (joint inflammation) Integumentary: No rashes Neurological: Normal speech, Normal tone, Normal affect Lymphatics: No axilla or inguinal lymphadenopathy External genitalia: Deferred Rectal: Deferred Laboratory Data at Discharge: WBC 8.00 thou/uL (4.3-10.9) 01/26/24 12:45 Hgb 15.3 g/dL (13.6-17.9) 01/26/24 12:45 Hct 46.9 % (39.6-49.0) 01/26/24 12:45 Plt Count 156 thou/uL (152-406) 01/26/24 12:45 PT 11.9 SECONDS (9.4-12.5) 01/26/24 14:05 INR 1.06 01/26/24 14:05 APTT 31.4 SECONDS (24.3-36.9) 01/26/24 14:05 Sodium 137 mEq/L (136-145) 01/26/24 12:45 Potassium 4.2 mEq/L (3.5-5.1) 01/26/24 12:45 BUN 11 mg/dL (7-18) 01/26/24 12:45 Creatinine 0.87 mg/dL (0.70-1.30) 01/26/24 12:45 Glucose 105 mg/dL (74-106) 01/26/24 12:45 Physician Discharge Instructions: Transfer to [facility] via EMS. Diet: NPO Activity: Bedrest Followup: NONE,NONE [Primary Care Provider] -
[2024-01-26 17:56] VITALS: TEMP 97.8
[2024-01-26 18:58] LABS: Protime INR 1.07
[2024-01-26 19:27] LABS: Troponin High Sensitivity 9911.6 pg/mL (<58.9)
[2024-01-26] MEDS ORDERED: ENOXAPARIN 100 MG/ML SYR SQ SCH (21:00)
[2024-01-26] MEDS ORDERED: ENOXAPARIN 80 MG/0.8 ML SQ SCH (21:00)
[2024-01-26] MEDS ORDERED: METOPROLOL TAR 50 MG TAB PO SCH (21:00)
[2024-01-27 02:02] VITALS: BP 121/86; O2SAT 97
--- NOTE | 2024-01-27 07:21 | ECHO ---
HEIGHT: 5 ft 5 in WEIGHT: 184 lb 15.838 oz DATE OF STUDY: 01/26/[address]: April Kulkarni CAN SEALER-BC 2-DIMENSIONAL: YES M.MODE: YES DOPPLER: YES COLOR FLOW: YES TDS: PORTABLE: YES DEFINITY: BUBBLE STUDY: DIAGNOSIS: NON ST ELEVATION MYOCARDIAL INFARCTION CARDIAC HISTORY: CATHERIZATION: NO SURGERY: NO PROSTHETIC VALVE: NO PACEMAKER: NO MEASUREMENTS (cm) DIASTOLIC (NORMALS) SYSTOLIC (NORMALS) IVSd 1.2 (0.6-1.2) LA Diam 3.0 (1.9-4.0) LVEF 35-40% LVIDd 4.5 (3.5-5.7) LVIDs 3.3 (2.0-3.5) %FS 26% LVPWd 1.3 (0.6-1.2) Ao Diam 3.2 (2.0-3.7) 2 DIMENSIONAL ASSESSMENT: RIGHT ATRIUM: NORMAL LEFT ATRIUM: NORMAL RIGHT VENTRICLE: NORMAL LEFT VENTRICLE: DEPRESSED EJECTION FRACTION TRICUSPID VALVE: MILD TRICUSPID REGURGITATION MITRAL VALVE: MILD MITRAL REGURGITATION PULMONIC VALVE: NORMAL AORTIC VALVE: NORMAL PERICARDIAL EFFUSION: NONE AORTIC ROOT: NORMAL LEFT VENTRICULAR WALL MOTION: ANTERIOR/ APICAL HYPOKINESIS DOPPLER/COLOR FLOW: SEE BELOW COMMENTS: 1. MODERATELY DEPRESSED LEFT VENTRICULAR EJECTION FRACTION 35-40% 2. ANTERIOR/ APICAL HYPOKINESIS 3. LEFT ATRIAL ENLARGEMENT 4. MILD MITRAL REGURGITATION 5. MILD TRICUSPID REGURGITATION TECHNOLOGIST: MAICO TAVARES
[2024-01-27] MEDS ORDERED: PANTOPRAZOLE 40 MG INJ IVP SCH (09:00)
[2024-01-27] MEDS ORDERED: FUROSEMIDE 20 MG/ 2ML VIAL IV SCH (09:00)
[2024-01-27] MEDS ORDERED: lisinopriL 10 MG TAB PO SCH (09:00)
[2024-01-27] MEDS ORDERED: ASPIRIN EC 81 MG TAB PO SCH (09:00)
--- NOTE | 2024-01-28 12:24 | EKG ---
Test Date: 2024-01-26 Test Time: 10:59:48 Jigger Machine Operator: PH MEASUREMENT RESULTS: Intervals: Rate: 99 MT: QRSD: 104 QT: 376 QTc: 482 [place]: P: MT: QRS: -6 T: 168 INTERPRETIVE STATEMENTS: Atrial fibrillation with premature ventricular or aberrantly conducted complexes Voltage criteria for left ventricular hypertrophy ST & T wave abnormality, consider anterolateral ischemia Prolonged QT Abnormal ECG Compared to ECG 03/29/2023 15:54:33 Ventricular premature complex(es) now present ST (T wave) deviation now present Possible ischemia now present Prolonged QT interval now present Sinus rhythm no longer present Sinus arrhythmia no longer present T-wave abnormality no longer present Electronically Signed On 01-28-24 12:18:11 CDT by Ryland Jenkins
== END 2024-01-26 20:01 | disposition short-term general hospital (02) | DRG 281 ==
LOC: ER 10:42 → ERHOLD 14:48 → 2ND 16:47
PROVIDERS: ADMIT Hospitalist; ATTEND Hospitalist
DX: I21.4 Non-ST elevation (NSTEMI) myocardial infarction (principal); I50.42 Chronic combined systolic (congestive) and diastolic (congestive) heart failure; I11.0 Hypertensive heart disease with heart failure; I48.91 Unspecified atrial fibrillation; M19.90 Unspecified osteoarthritis, unspecified site
CPT/HCPCS: 36415; 71045; 71275; 80048; 80061; 83880; 84484; 85025; 85610; 85730; 93005; 93306; 99285; J1644; J1940; Q9967

== ENCOUNTER 2024-05-31 16:11 | Emergency (ER) | payer OTHER ==
[2024-05-31] MEDS ORDERED: HYDROCODONE/APAP 10/325 TAB ONE (16:38)
--- NOTE | 2024-05-31 18:05 | RAD REPORT ---
EXAM: XR Knee Right 3 View HISTORY: [facility] MAIN PAIN Bed Name: 11 COMPARISON: None TECHNIQUE: 3 views of the left knee were obtained. FINDINGS: No knee effusion is seen. There is no evidence of acute fracture or dislocation. Advanced tricompartmental degenerative changes are seen with joint space loss medially and laterally, progressive since prior exam. Long segment of central sclerosis within the distal femur appears stab le, could relate to a bone infarct. No soft tissue swelling or other soft tissue abnormality is present. IMPRESSION: No evidence of acute osseous abnormality. Progressive degenerative changes and other chr onic findings as above.
--- NOTE | 2024-05-31 18:36 | ER ---
Nurse's Notes [facility] Name: Jabier Ford Age: 69 yrs Sex: Male : 1955 Arrival Date: 05/31/2024 Time: 16:11 Bed 11 Private MD: Diagnosis: Pain in right knee Presentation: 05/31 16:12 Chief complaint: EMS states: SPONTANEOUS R KNEE PAIN SINCE 0300, DENIES TRAUMA. bp Coronavirus screen: At this time, the client does not indicate any symptoms associated with coronavirus-19. Ebola Screen: No symptoms or risks identified at this time. Initial Sepsis Screen: Does the patient meet any 2 criteria? No. Patient's initial sepsis screen is negative. Does the patient have a suspected source of infection? No. Patient's initial sepsis screen is negative. Risk Assessment: Do you want to hurt yourself or someone else? Patient reports no desire to harm self or others. Onset of symptoms was May 31, 2024 at 03:00. 16:12 Method Of Arrival: EMS: [facility] bp 16:12 Acuity: MONA 4 bp Triage Assessment: 16:13 General: Appears in no apparent distress. Behavior is calm, cooperative, appropriate bp for age. Pain: Complains of pain in right knee. EENT: No deficits noted. Neuro: No deficits noted. Cardiovascular: No deficits noted. Respiratory: No deficits noted. GI: No signs and/or symptoms were reported involving the gastrointestinal system. : No signs and/or symptoms were reported regarding the genitourinary system. Derm: No deficits noted. Musculoskeletal: Reports pain in right knee. Historical: - Allergies: 16:13 No Known Allergies; bp - PMHx: 16:13 Arthritis; Asthma; Hypertension; bp - PSHx: 16:13 Coronary artery bypass graft; bp - Immunization history:: Adult Immunizations up to date. - Infectious Disease History:: Denies. - Social history:: Smoking status: Patient denies any tobacco usage or history of. - Family history:: not pertinent. Screenin:15 [facility] ED Fall Risk Assessment (Adult) History of falling in the last 3 months, bp including since admission No falls in past 3 months (0 pts) Confusion or Disorientation No (0 pts) Intoxicated or Sedated No (0 pts) Impaired Gait No (0 pts) Mobility Assist Device Used No (0 pt) Altered Elimination No (0 pt) Score/Fall Risk Level 0 - 2 = Low Risk Oriented to surroundings. Abuse screen: Denies threats or abuse. Denies injuries from another. Nutritional screening: No deficits noted. Tuberculosis screening: No symptoms or risk factors identified. Assessment: 16:15 General: Appears in no apparent distress. uncomfortable, Behavior is cooperative, bp appropriate for age, anxious. 18:40 Reassessment: DC ON HOLD FOR FAMILY TRANSPORT. bp 19:52 General: waiting on different family member to come pick him up. vc1 Vital Signs: 16:12 BP 132 / 84; Pulse 100; Resp 18; Temp 98; Pulse Ox 100% ; bp 18:39 BP 127 / 79; Pulse 89; Resp 16; Pulse Ox 100% ; bp ED Course: 16:12 Patient arrived in ED. bp 16:13 Triage completed. bp 16:13 Arm band placed on. bp 16:14 Power Hampton MD is Attending Physician. rt 16:15 Patient has correct armband on for positive identification. bp 16:17 Nish Reynolds, RN is Primary Nurse. bp 16:36 Radiology exam delayed due to PT IS WANTING MEDICATION FOR PAIN BEFORE DOING ANY X RAYS.az 17:20 Knee Right 3 View XRAY In Process Unspecified. EDMS 18:39 Provided Education on: na. bp 18:39 No provider procedures requiring assistance completed. Patient did not have IV access bp during this emergency room visit. Administered Medications: 16:43 Drug: [place] PO 10 mg-325 mg 1 tabs PO once Route: PO; bp Medication: 16:15 VIS not applicable for this client. bp Outcome: 18:35 Discharge ordered by . rt 18:39 Discharged to home via wheelchair, with family, bp 18:39 Condition: stable 18:39 Discharge instructions given to patient, Instructed on discharge instructions, follow up and referral plans. medication usage, Demonstrated understanding of instructions, follow-up care, medications, Prescriptions given X 1, 20:09 Patient left the ED. vc1 Signatures: Dispatcher [employer] EDMS Nish Reynolds, RN RN Tanisha Olson Vanessa, RN RN vc1 Power Hampton MD MD rt
--- NOTE | 2024-05-31 18:36 | EDPHYS ---
Physician Documentation [facility] Name: Jabier Ford Age: 69 yrs Sex: Male : 1955 Arrival Date: 05/31/2024 Time: 16:11 Bed 11 Private MD: ED Physician Power Hampton HPI: 05/31 20:14 This 69 yrs old Male presents to ER via EMS with complaints of Knee Pain. rt 20:14 Patient presents to the ED with pain to the right knee. Patient states that he had no rt trauma to the knee, woke up with pain. Denies other acute bites at this time. Pain is aching nature, nonradiating, moderate severity, no other aggravating alleviating factors.. Historical: - Allergies: 16:13 No Known Allergies; bp - PMHx: 16:13 Arthritis; Asthma; Hypertension; bp - PSHx: 16:13 Coronary artery bypass graft; bp - Immunization history:: Adult Immunizations up to date. - Infectious Disease History:: Denies. - Social history:: Smoking status: Patient denies any tobacco usage or history of. - Family history:: not pertinent. ROS: 20:14 Constitutional: Negative for fever, chills, and weight loss, Skin: Negative for injury, rt rash, and discoloration, Neuro: Negative for headache, weakness, numbness, tingling, and seizure, Psych: Negative for depression, anxiety, suicide ideation, homicidal ideation, and hallucinations, 20:14 MS/extremity: Positive for pain, Negative for deformity, Exam: 20:14 Constitutional: This is a well developed, well nourished patient who is awake, alert, rt and in no acute distress. Head/Face: Normocephalic, atraumatic. Chest/axilla: Normal chest wall appearance and motion. Nontender with no deformity. No lesions are appreciated. Cardiovascular: Regular rate and rhythm with a normal S1 and S2. No gallops, murmurs, or rubs. Normal PMI, no JVD. No pulse deficits. Respiratory: Lungs have equal breath sounds bilaterally, clear to auscultation and percussion. No rales, rhonchi or wheezes noted. No increased work of breathing, no retractions or nasal flaring. Abdomen/GI: Soft, non-tender, with normal bowel sounds. No distension or tympany. No guarding or rebound. No evidence of tenderness throughout. Skin: Warm, dry with normal turgor. Normal color with no rashes, no lesions, and no evidence of cellulitis. Neuro: Awake and alert, GCS 15, oriented to person, place, time, and situation. Cranial nerves II-XII grossly intact. Motor strength 5/5 in all extremities. Sensory grossly intact. Cerebellar exam normal. Normal gait. 20:14 Musculoskeletal/extremity: Mild tenderness of the right knee, no appreciable swelling, skin is normal, pulses, motor, sensation intact. Vital Signs: 16:12 BP 132 / 84; Pulse 100; Resp 18; Temp 98; Pulse Ox 100% ; bp 18:39 BP 127 / 79; Pulse 89; Resp 16; Pulse Ox 100% ; bp MDM: 16:14 Medical Screening Exam initiated rt 20:14 Differential Diagnosis Fracture, arthritis. Data reviewed: vital signs, nurses notes, rt radiologic studies. Independent interpretation of the following test(s) in the Emergency Department X-Ray: My interpretation is No fracture seen on my interpretation of x-ray images. Test considered but Not performed: Labs: No clinical signs or symptoms suggestive of gout, septic arthritis, arthrocentesis is not indicated. Care significantly affected by the following chronic conditions: Hypertension. Counseling: I had a detailed discussion with the patient and/or guardian regarding the historical points, exam findings, and any diagnostic results supporting the discharge/admit diagnosis, radiology results, the need for outpatient follow up. Response to treatment: the patient's symptoms have mildly improved after treatment. 05/31 16:16 Order name: Knee Right 3 View XRAY; Complete Time: 18:05 rt Administered Medications: 16:43 Drug: [place] PO 10 mg-325 mg 1 tabs PO once Route: PO; bp Disposition Summary: 05/31/24 18:35 Discharge Ordered Notes: Location: Home rt Problem: new rt Symptoms: have improved rt Condition: Stable rt Diagnosis - Pain in right knee rt Followup: rt - With: Private Physician - When: 2 - 3 days - Reason: Discharge Instructions: - Discharge Summary Sheet rt - Acute Knee Pain, Adult rt Forms: - Medication Reconciliation Form rt - Antibiotic Education rt - Prescription Opioid Use rt - Patient Portal Instructions rt - Leadership Thank You Letter rt Prescriptions: - Tramadol 50 mg Oral Tablet - take 1 tablet ORAL route every 8 hours as needed; 12 tablet; Refills: 0, rt Product Selection Permitted Signatures: Dispatcher [employer] Nish Hussein RN RN Power Gonzales MD MD rt
[2024-05-31 20:22] VITALS: TEMP 98; O2SAT 100
[2024-05-31 20:24] VITALS: BP 127/79
== END 2024-05-31 20:09 | disposition home or self-care (01) ==
LOC: ER 16:11
DX: M25.561 Pain in right knee (principal); Z95.1 Presence of aortocoronary bypass graft
CPT/HCPCS: 99283

== ENCOUNTER 2024-06-16 12:22 | Emergency (ER) | payer OTHER ==
[2024-06-16] MEDS ORDERED: NA CHLORIDE 0.9% 2,000 ML ONE (12:59)
--- NOTE | 2024-06-16 13:16 | RAD REPORT ---
EXAMINATION: ONE VIEW CHEST XR CLINICAL INDICATION: COUGH TECHNIQUE: Frontal chest projection is submitted. Examination is limited by patient positioning and t echnique. COMPARISON: 01/26/2024 FINDINGS: The lungs are well inflated and clear. The heart is upper limit of normal in size. No displaced fract ures identified. Sternotomy wires present. IMPRESSION: No acute intrathoracic abnormalities.
[2024-06-16 14:05] LABS: PT Prothrombin Time 16.1 SECONDS (10-13.0); PTT, Activated Partial Thromb 43.3 SECONDS (27.2-37.4); Protime INR 1.44
[2024-06-16 14:07] LABS: Absolute Basophils 0.1 K/uL (0-0.5); Absolute Lymphocytes (CBC) 1.3 K/uL (0.7-4.9); Absolute Monocytes 0.8 K/uL (0.1-1.3); Absolute Neutrophil 7.6 K/uL (1.8-8.0); Basophils % 0.7 % (0-1.3); Eosinophils % 0.1 % (0-4.4); Hematocrit 37.9 % (39.6-49.0); Hemoglobin 12.5 g/dL (13.6-17.9); MCH 28.7 pg (27.0-35.0); MCHC 32.9 g/dL (32.0-36.0); MPV 9.4 fL (7.6-11.3); Monocytes % 8.6 % (3.3-12.3); Neutrophils % 77.6 % (41.7-73.7); Nucleated Red Blood Cells % 0.1 % (0-0); Platelets 224 thou/uL (152-406); RBC Red Blood Cell Count 4.36 M/uL (4.33-5.43); Red Cell Distribution Width 18.8 % (12.1-15.2)
[2024-06-16 14:09] LABS: Influenza A Ag Negative; Influenza B Ag Negative; SARS-CoV-2 Antigen Rapid Res Negative (Negative)
[2024-06-16 14:58] LABS: Albumin 2.9 g/dL (3.4-5.0); Albumin/Globulin Ratio 0.9 (1.1-1.8); Anion Gap 19.6 mEq/L (5.0-15.0); Bilirubin Total 0.7 mg/dL (0.2-1.0); Digoxin Level 1.6 ng/mL (0.80-2.00); Globulin 3.4 g/dL (2.3-3.5); Potassium 4.6 mEq/L (3.5-5.1); Protein, Total 6.3 g/dL (6.4-8.2)
[2024-06-16 14:59] LABS: Troponin High Sensitivity 1346.9 pg/mL (<58.9)
[2024-06-16] MEDS ORDERED: ACETAMINOPHEN 325 MG TABLET PO PRN (15:21)
--- NOTE | 2024-06-16 15:41 | P.HP ---
Certification for Inpatient Patient admitted to: Observation With expected LOS: <2 Midnights Patient will require the following post-hospital care: None Practitioner: I am a practitioner with admitting privileges, knowledge of patient current condition, hospital course, and medical plan of care. Services: Services provided to patient in accordance with Admission requirements found in Title 42 Section 412.3 of the Code of Federal Regulations Patient History Date of Service: 06/16/24 Allergies No Known Allergies Allergy (Unverified 05/07/12 21:46) Home medications list reviewed: Yes (No home meds reported ) - Past Medical/Surgical History Diabetic: Yes Past Medical History: Reviewed- Non-Contributory -: Hypertension, Diabetes, Edema, COVID 19, cholecystectomy, cardiac stent X1 -: Arthritis -: Abdominal surgery and hernia repair Psychosocial/ Personal History: History of insomnia - Social History Alcohol use: Yes CD- Drugs: No Caffeine use: Yes Review of Systems 10-point ROS is otherwise unremarkable Respiratory: Shortness of Breath, SOB with Excertion Cardiovascular: Chest Pain ("tightness"), Edema Gastrointestinal: Diarrhea, Distention, Constipation Physical Examination - Physical Exam General: Alert, In no apparent distress HEENT: Atraumatic, PERRLA, Mucous membr. moist/pink, EOMI, Sclerae nonicteric Neck: Supple, 2+ carotid pulse no bruit, No LAD, Without JVD or thyroid abnormality Respiratory: Normal air movement, Diminished Cardiovascular: Regular rate/rhythm, Normal S1 S2, Edema Capillary refill: <2 Seconds Gastrointestinal: Hypoactive, No tenderness, Distended Musculoskeletal: No tenderness Integumentary: No rashes Neurological: Normal gait, Normal speech, Normal strength at 5/5 x4 extr, Normal tone, Normal affect Lymphatics: No axilla or inguinal lymphadenopathy External genitalia: Deferred Rectal: Deferred - Studies Laboratory Data (last 24 hrs) 06/16/24 06/16/24 06/16/24 14:18 13:40 13:40 WBC 9.80 Hgb 12.5 L Hct 37.9 L Plt Count 224 PT 16.1 H INR 1.44 APTT 43.3 H Sodium 129 L Potassium 4.6 BUN 50 H Creatinine 7.26 H Glucose 101 Total Bilirubin 0.7 AST 33 ALT 16 Alkaline Phosphatase 82 Assessment and Plan - Plan Volume overload Chest pressure/SOB Hx of cardiac stent (2022) -CXR completed without acute findings -Appears clinically overloaded on exam -Patient reports past use of Lasix 8 months ago -Troponin 1346, continue to trend -Monitor daily weights -Strict I&O -Cardiac diet for now Fluid restriction 1400mL -Received IV Lasix while in ED, consider more Lasix after re-eval -Monitor kidney function and electrolytes -Echo ordered -Cardiology consult ordered, appreciate recs -Denies all home meds Abdominal Distention/pain -Reported constipation/diarrhea -Covid/Flu; negative -CT of abd ordered Hx of Diabetes Type II -Patient denies home meds and states he was cleared by PCP -A1C ordered -Accu-checks ACHS for now -Serum glucose R/o Urinary Tract Infection Elevated creatinine -Reports Hx of UTI's -UA ordered and pending result -Admission Creatinine 7.26 -Monitor Kidney function q6h for now -Monitor electrolytes, mag &phos ordered -Consider Nephro consult if worsening DVT Ppx: SCD's for now GI Ppx: PO Protonix Code Status: Full Code Discharge Plan: Home Plan to discharge in: 48 Hours - Advance Directives Does patient have a Living Will: No Does patient have a Durable POA for Healthcare: No - Code Status/Comfort Care Code Status Assessed: Yes (FULL CODE)
--- NOTE | 2024-06-16 15:41 | RAD REPORT ---
EXAMINATION: CT ABDOMEN AND PELVIS WITHOUT CONTRAST CLINICAL INDICATION: ABD PAIN TECHNIQUE: CT abdomen and pelvis was performed, without IV contrast, as per department protocol. Axia l, sagittal and coronal reconstructions were obtained. One or more of the following dose reduction techniques were used: Automated exposure control, adjustment of the mA and kV according to the patien t size, and iterative reconstruction. Unless otherwise specified, incidental findings do not require dedicated imaging follow-up. COMPARISON: No prior exam. FINDINGS: The lack of intravenous contrast limits the sensitivity of this exam for evaluation of solid visceral organs, vascular structures, and retroperitoneum. LOWER CHEST: Small area of groundglass opacity right middle lobe. LIVER:Normal in size and contour. No focal lesion. Grossly unremarkable gallbladder. SPLEEN: Normal size. No focal lesion. PANCREAS: No mass, ductal dilation, or cheli-pancreatic fluid. ADRENALS: Normal; no mass. KIDNEYS AND URETERS: Normal size and contour. No hydronephrosis. URINARY BLADDER: Normal contour. GASTROINTESTINAL TRACT: No evidence of bowel obstruction, significant free fluid, free air or abscess . Moderate stool is retained throughout the colon. APPENDIX: Normal appendix. LYMPH NODES: No lymphadenopathy. MUSCULOSKELETAL: Mild lower lumbar spondylosis. 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 IMPRESSION: No acute or concerning abnormalities in the abdomen or pelvis, with evaluation limited by lack of IV contrast.
--- NOTE | 2024-06-16 15:49 | EDPHYS ---
Physician Documentation [facility] Name: Jabier Ford Age: 69 yrs Sex: Male : 1955 Arrival Date: 06/16/2024 Time: 12:22 Bed 3 Private MD: ED Physician Tyson Pantoja HPI: 06/16 12:32 This 69 yrs old Male presents to ER via Unassigned with complaints of ec2 weakness, n/v/d. 12:32 Patient arrives today for worsening nausea, vomiting, diarrhea, decreased p.o. intake, ec2 abdominal pain. Patient with history of CHF, hypertension, hyperlipidemia.. Historical: - Allergies: 13:06 No Known Allergies; cm10 - Home Meds: 13:06 clopidogrel 75 mg oral tablet 1 tab daily [Active]; furosemide 40 mg Oral tablet 1 tab cm10 daily [Active]; ferrous sulfate 325 mg (65 mg iron) Oral tablet 1 tab 2 times per day [Active]; digoxin 125 mcg (0.125 mg) Oral tablet daily [Active]; amlodipine 5 mg tablet 1 tab daily [Active]; tramadol 50 mg Oral tablet 1 tab [Active]; atorvastatin 40 mg oral tablet 1 tab every day at bedtime [Active]; acetazolamide 250 mg Oral tablet 1 tab daily [Active]; famotidine 20 mg Oral tablet [Active]; sotalol 80 mg Oral tablet 1 tab every 12 hours [Active]; - PMHx: 13:06 Arthritis; Asthma; Hypertension; Hypercholesterolemia; Myocardial infarction; cm10 - PSHx: 13:06 Coronary artery bypass graft; cm10 - Immunization history:: Adult Immunizations unknown. - Infectious Disease History:: Denies. - Social history:: Smoking status: unknown. ROS: 12:32 Constitutional: as per hpi ec2 Exam: 12:32 Constitutional: GEN: NAD Head: atraumatic Eyes: EOMI Ears: External ears are ec2 normal. CV: regular rate LUNGS: no respiratory distress ABD: non-distended, soft, not guarding SKIN: no evidence of rashes MSK: no evidence of trauma Vital Signs: 12:30 BP 98 / 72; Pulse 59; Resp 22; Temp 98.6(A); Pulse Ox 100% on R/A; Weight 68.04 kg; bp 12:30 BP 66 / 42; MAP 51 mmHg; cm10 12:51 BP 66 / 49; Pulse 51; MAP 57 mmHg; cm10 13:00 BP 62 / 42; Pulse 56; Resp 12; Pulse Ox 97% on R/A; cm10 14:00 BP 92 / 58; Pulse 58; Resp 14; Pulse Ox 94% ; bp 15:00 BP 88 / 43; Pulse 47; Resp 14; Pulse Ox 95% ; bp 15:02 BP 87 / 44; ec2 17:00 MAP 51 mmHg; ll1 17:05 BP 115 / 80; Pulse 54; Resp 15; Pulse Ox 100% on 2 lpm NC; MAP 89 mmHg; ll1 17:40 BP 97 / 86; Pulse 65; Resp 12; Pulse Ox 98% on 2 lpm NC; MAP 90 mmHg; ll1 18:00 BP 116 / 91; Pulse 56; Resp 15; Pulse Ox 95% on 2 lpm NC; MAP 101 mmHg; cm10 18:15 BP 122 / 78; Pulse 60; Resp 15; Pulse Ox 100% on 2 lpm NC; MAP 93 mmHg; cm10 18:35 BP 105 / 53; Pulse 53; Resp 15; Pulse Ox 100% on 2 lpm NC; MAP 69 mmHg; cm10 18:41 BP 119 / 65; Pulse 52; Resp 22; Pulse Ox 100% on 2 lpm NC; MAP 83 mmHg; cm10 Procedures: 16:24 Central Line: the site was prepped with Betadine, in sterile fashion, a triple lumen ec2 catheter was inserted, in the left in 1 attempts. placement was verified, by blood return, the site was dressed with Tegaderm, using sterile technique, the patient tolerated the procedure, well. MDM: 12:28 Medical Screening Exam initiated ec2 12:33 Data reviewed: vital signs, EMS record. Data reviewed: nurses notes. ED course: Patient ec2 arrives today for nausea, vomiting, diarrhea, decreased p.o. intake. Will obtain lab work, CT imaging, treat the patient with crystalloid as well as antiemetic. DDx include processes such as small bowel obstruction, anemia, dehydration. 15:15 ED course: Patient with marked troponin abnormality. Acute renal failure. Compared to [facility] external records, these values are markedly different. Will start the patient on heparin drip. Will start the patient on Levophed and will also place a central line given the poor access for the patient.. 16:23 ED course: I placed a central line in the left groin without issue. Will start the ec2 patient on Levophed given the hypotensive blood pressures. My concern is for cardiogenic shock, acute renal failure.. ED course: I will transfer patient to cardiac catheterization capable facility.. 16:45 ED course: I discussed the case with cardiology, [facility] who agrees to ec2 consult on the case.. 17:05 ED course: I discussed case with the residential door unit installer that [facility] who ec2 recommended vasopressin initiation, or status.. 06/16 12:29 Order name: Blood Culture Adult (2) ec2 06/16 12:29 Order name: CBC with Diff; Complete Time: 14:49 ec2 06/16 12:29 Order name: CMP; Complete Time: 15:01 ec2 06/16 12:29 Order name: Lactate w/ 2H reflex if indic.; Complete Time: 14:49 ec2 06/16 12:29 Order name: Protime (+inr); Complete Time: 14:49 ec2 06/16 12:29 Order name: Ptt, Activated; Complete Time: 14:49 ec2 06/16 12:29 Order name: COVID-19 Ag + Flu A+B Ag; Complete Time: 14:49 ec2 06/16 12:29 Order name: Troponin High Sensitivity; Complete Time: 15:01 ec2 06/16 13:43 Order name: Digoxin Level; Complete Time: 15:01 EDMS 06/16 12:29 Order name: CXR XRAY; Complete Time: 13:38 ec2 06/16 15:15 Order name: Abdomen ; Complete Time: 15:48 EDMS 06/16 12:29 Order name: Accucheck; Complete Time: 14:05 ec2 06/16 12:29 Order name: Cardiac monitoring; Complete Time: 13:52 ec2 06/16 12:29 Order name: EKG - Nurse/Tech; Complete Time: 13:52 ec2 06/16 12:29 Order name: IV Saline Lock - Large Bore; Complete Time: 13:52 ec2 06/16 12:29 Order name: Labs collected and sent; Complete Time: 13:52 ec2 06/16 12:29 Order name: O2 Per Protocol; Complete Time: 13:52 ec2 06/16 12:29 Order name: O2 Sat Monitoring; Complete Time: 13:53 ec06/16 12:29 Order name: Vital Signs; Complete Time: 13:53 ec06/16 13:59 Order name: Labs - recollect needed: green; Complete Time: 15:52 bc6 Administered Medications: 13:04 Drug: NS 0.9% IV 1000 ml IV at 1000 ml once; to be given as a bolus over 60 minutes cm10 Route: IV; Rate: 1000 ml; Site: left wrist; 15:52 Follow up: IV Status: Completed infusion bp 13:51 Drug: NS 0.9% IV 1000 ml IV at 1000 ml once; to be given as a bolus over 60 minutes cm10 Route: IV; Rate: 1000 ml; Site: left wrist; 15:52 Follow up: IV Status: Completed infusion bp 16:45 Drug: NS 0.9% IV 1000 ml IV at 1000 ml once; to be given as a bolus over 60 minutes ll1 Route: IV; Rate: 1000 ml; Site: left femoral; 17:15 Follow up: Response: No adverse reaction; IV Status: Completed infusion; IV Intake: ll1 1000ml 16:47 Drug: Norepinephrine IV 0.1 mcg/kg/min IV at calculated rate See Administration ll1 Instructions; (Standard concentration 4 mg / 250 mL D5W); Recommended max rate 3 mcg/kg/min; Titrate 0.05 mcg/kg/min as often as every 5 minutes to achieve goal (see titration policy); Goal parameter MAP greater than 65 mmHg. Route: IV; Rate: calculated rate; Site: left femoral; 17:00 Follow up: Rate change 0.15 mcg/kg/min; MAP: 51 ll1 18:37 Follow up: Response: No adverse reaction; IV Status: Infusion continued upon transfer cm10 16:48 Drug: Heparin ([place] Drip) 12 units/kg/[place] - ([place] [address] units, D5W IV 500 ml) IV at ll1 calculated rate Per protocol; Max initial rate 1000 units/hr {Co-Signature: bp (Nish Reynolds RN).} Route: IV; Rate: calculated rate; Site: left femoral; 18:37 Follow up: Response: No adverse reaction; IV Status: Infusion continued upon transfer cm10 17:25 Drug: Vasopressin IV 0.03 units/min IV at calculated rate continuous Route: IV; Rate: ll1 calculated rate; Site: left femoral; 18:37 Follow up: Response: No adverse reaction; IV Status: Infusion continued upon transfer cm10 18:22 Not Given (Other Intervention Used): ondansetron 4 mg IVP once; over 2 minutes ll1 18:22 Drug: Aspirin PO Chewable Tablet 324 mg PO once; 81 mg tablets x 4 Route: PO; ll1 18:37 Follow up: Response: No adverse reaction cm10 Disposition Summary: 06/16/24 15:49 Transfer Ordered Notes: Transfer Location: Other Acute Care Facility ec2 Reason: Higher level of care ec2 Condition: Serious ec2 Problem: new ec2 Symptoms: have improved ec2 Accepting Physician: transferring doc(06/16/24 18:55) cm10 Diagnosis - Acute kidney failure, unspecified ec2 - NSTEMI ec2 - Cardiogenic Shock ec2 Forms: - Medication Reconciliation Form ec2 - SBAR form ec2 Critical care time excluding procedures: 15:48 Critical care time: Bedside Care: 30 minutes, Consultation: 5 minutes. Total time: 35 ec2 minutes Signatures: Dispatcher [employer] EDPolo Marinelli RN RN ll1 Rima Lechuga bc6 Dorita Pfeiffer RN RN cm10 Tyson Pantoja MD MD ec2 Nish Reynolds RN bp Nish Reynolds RN bp Corrections: (The following items were deleted from the chart) 12:30 12:30 BLOOD CULTURE*+BA.LAB.BRZ ordered. EDMS EDMS 12:30 12:30 CBC+H.LAB.BRZ ordered. EDMS EDMS 12:30 12:30 COMPREHENSIVE METABOLIC PANEL+C.LAB.BRZ ordered. EDMS EDMS 12:30 12:30 LACTATE+C.LAB.BRZ ordered. EDMS EDMS 12:30 12:30 PROTIME (+INR)+COAG.LAB.BRZ ordered. EDMS EDMS 12:30 12:30 PTT, ACTIVATED+COAG.LAB.BRZ ordered. EDMS EDMS 12:30 12:30 COVID-19 Ag + Flu A+B Ag+I.LAB.BRZ ordered. EDMS EDMS 12:30 12:30 Troponin High Sensitivity+C.LAB.BRZ ordered. EDMS EDMS 12:30 12:30 Chest Single View+RAD.RAD.BRZ ordered. EDMS EDMS 12:31 12:31 Abdomen Pelvis W Con+CT.RAD.BRZ ordered. EDMS EDMS 13:43 13:36 DIGOXIN+C.LAB.BRZ ordered. EDMS EDMS 15:49 15:49 transferring doc ec2 ec2 15:55 15:32 CONS Physician Consult ordered. EDMS EDMS 15:55 15:32 Liver (Hepatic) Function ordered. EDMS EDMS 15:55 15:32 NT PRO-BNP ordered. EDMS EDMS 15:55 15:32 T4 Free ordered. EDMS EDMS 15:55 15:32 Thyroid Stimulating Hormone ordered. EDMS EDMS 15:55 15:32 Basic Metabolic Panel ordered. EDMS EDMS 15:55 15:32 Basic Metabolic Panel ordered. EDMS EDMS 15:55 15:32 Basic Metabolic Panel ordered. EDMS EDMS 15:55 15:32 Basic Metabolic Panel ordered. EDMS EDMS 15:55 15:32 CBC with Automated Diff ordered. EDMS EDMS 15:55 15:32 CBC with Automated Diff ordered. EDMS EDMS 15:55 15:32 CBC with Automated Diff ordered. EDMS EDMS 15:55 15:32 CBC with Automated Diff ordered. EDMS EDMS 15:55 15:32 Troponin High Sensitivity ordered. EDMS EDMS 15:55 15:32 Troponin High Sensitivity ordered. EDMS EDMS 15:55 15:32 Troponin High Sensitivity ordered. EDMS EDMS 15:55 15:32 Troponin High Sensitivity ordered. EDMS EDMS 15:55 15:32 Urinalysis w/ reflexes ordered. EDMS EDMS 16:23 15:49 transferring doc ec2 ec2 18:55 16:23 transferring doc ec2 cm10
--- NOTE | 2024-06-16 15:49 | ER ---
Nurse's Notes [facility] Name: Jabier Ford Age: 69 yrs Sex: Male : 1955 Arrival Date: 06/16/2024 Time: 12:22 Bed 3 Private MD: Diagnosis: Acute kidney failure, unspecified;NSTEMI;Cardiogenic Shock Presentation: 06/16 12:30 Chief complaint: EMS states: CALLED TO PATIENT'S HOME FOR GENERALIZED WEAKNESS ONSET A cm10 FEW DAYS AGO. PT COMPLAINING OF VOMITING. PT WAS FOUND TO BE HYPOTENSIVE BY EMS [facility] IN THE 60S. Coronavirus screen: Client denies travel out of the [place] in the last 14 days. Ebola Screen: Patient denies travel to an Ebola-affected area in the 21 days before illness onset. Initial Sepsis Screen: Does the patient meet any 2 criteria? RR > 20 per min. Mean Arterial Pressure (MAP) < 65. Does the patient have a suspected source of infection? No. Patient's initial sepsis screen is negative. Risk Assessment: Do you want to hurt yourself or someone else? Patient reports no desire to harm self or others. Onset of symptoms was June 16, 2024. 12:30 Method Of Arrival: EMS: [facility] cm10 12:30 Acuity: MONA 2 cm10 12:30 Care prior to arrival: Glucose check: 93. cm10 Triage Assessment: 13:10 General: Appears distressed, ill, Behavior is cooperative, appropriate for age, drowsy. bp Pain: Complains of pain in abdomen. EENT: No deficits noted. Neuro: Level of Consciousness is awake, alert, obeys commands, Oriented to Appropriate for age. Cardiovascular: Rhythm is sinus bradycardia. Respiratory: No deficits noted. GI: No signs and/or symptoms were reported involving the gastrointestinal system. : No signs and/or symptoms were reported regarding the genitourinary system. Derm: No deficits noted. Musculoskeletal: No deficits noted. Historical: - Allergies: 13: No Known Allergies; cm10 - Home Meds: 13: clopidogrel 75 mg oral tablet 1 tab daily [Active]; furosemide 40 mg Oral tablet 1 tab cm10 daily [Active]; ferrous sulfate 325 mg (65 mg iron) Oral tablet 1 tab 2 times per day [Active]; digoxin 125 mcg (0.125 mg) Oral tablet daily [Active]; amlodipine 5 mg tablet 1 tab daily [Active]; tramadol 50 mg Oral tablet 1 tab [Active]; atorvastatin 40 mg oral tablet 1 tab every day at bedtime [Active]; acetazolamide 250 mg Oral tablet 1 tab daily [Active]; famotidine 20 mg Oral tablet [Active]; sotalol 80 mg Oral tablet 1 tab every 12 hours [Active]; - PMHx: 13:06 Arthritis; Asthma; Hypertension; Hypercholesterolemia; Myocardial infarction; cm10 - PSHx: 13:06 Coronary artery bypass graft; cm10 - Immunization history:: Adult Immunizations unknown. - Infectious Disease History:: Denies. - Social history:: Smoking status: unknown. Screenin:48 [facility] ED Fall Risk Assessment (Adult) History of falling in the last 3 months, bp including since admission No falls in past 3 months (0 pts) Confusion or Disorientation No (0 pts) Intoxicated or Sedated No (0 pts) Impaired Gait No (0 pts) Mobility Assist Device Used No (0 pt) Altered Elimination No (0 pt) Score/Fall Risk Level 0 - 2 = Low Risk Oriented to surroundings. Abuse screen: Denies threats or abuse. Denies injuries from another. Nutritional screening: No deficits noted. Tuberculosis screening: No symptoms or risk factors identified. Assessment: 13:10 General: Appears distressed, ill, Behavior is calm, cooperative, appropriate for age. bp 15:48 Reassessment: No changes from previously documented assessment. Patient is alert, bp oriented x 3, equal unlabored respirations, skin warm/dry/pink. 17:27 General: UNABLE TO GIVE REPORT AT THIS TIME. ll1 18:30 Reassessment: No changes from previously documented assessment. Patient is alert, cm10 oriented x 3, equal unlabored respirations, skin warm/dry/pink. 18:30 General: Appears ill, unkempt, malnourished. cm10 18:30 Neuro: No deficits noted. Level of Consciousness is awake, alert, Oriented to person, cm10 place, time, situation. Respiratory: No deficits noted. Airway is patent Respiratory effort is even, unlabored, Respiratory pattern is regular, symmetrical. Vital Signs: 12:30 BP 98 / 72; Pulse 59; Resp 22; Temp 98.6(A); Pulse Ox 100% on R/A; Weight 68.04 kg; bp 12:30 BP 66 / 42; MAP 51 mmHg; cm10 12:51 BP 66 / 49; Pulse 51; MAP 57 mmHg; cm10 13:00 BP 62 / 42; Pulse 56; Resp 12; Pulse Ox 97% on R/A; cm10 14:00 BP 92 / 58; Pulse 58; Resp 14; Pulse Ox 94% ; bp 15:00 BP 88 / 43; Pulse 47; Resp 14; Pulse Ox 95% ; bp 15:02 BP 87 / 44; ec2 17:00 MAP 51 mmHg; ll1 17:05 BP 115 / 80; Pulse 54; Resp 15; Pulse Ox 100% on 2 lpm NC; MAP 89 mmHg; ll1 17:40 BP 97 / 86; Pulse 65; Resp 12; Pulse Ox 98% on 2 lpm NC; MAP 90 mmHg; ll1 18:00 BP 116 / 91; Pulse 56; Resp 15; Pulse Ox 95% on 2 lpm NC; MAP 101 mmHg; cm10 18:15 BP 122 / 78; Pulse 60; Resp 15; Pulse Ox 100% on 2 lpm NC; MAP 93 mmHg; cm10 18:35 BP 105 / 53; Pulse 53; Resp 15; Pulse Ox 100% on 2 lpm NC; MAP 69 mmHg; cm10 18:41 BP 119 / 65; Pulse 52; Resp 22; Pulse Ox 100% on 2 lpm NC; MAP 83 mmHg; cm10 ED Course: 12:28 Patient arrived in ED. ec2 12:28 Tyson Pantoja MD is Attending Physician. ec2 12:57 Dorita Pfeiffer, ARIS is Primary Nurse. cm10 13:03 EKG done, by ED staff, reviewed by Tyson Pantoja MD. Inserted saline lock: 22 gauge in cm10 left wrist, using aseptic technique. Flushed with 10 mL NS. 13:06 Triage completed. cm10 13:09 CXR XRAY In Process Unspecified. EDMS 13:24 Arm band placed on Patient placed in an exam room, on a stretcher, on cardiac cath rn, cm10 on pulse oximetry. 14:00 Inserted saline lock: 20 gauge in left EJ, using aseptic technique. Blood collected. bp 15:27 Abdomen In Process Unspecified. EDMS 15:48 Patient has correct armband on for positive identification. bp 16:20 Assisted provider with central line placement. Set up central line tray. Triple lumen ll1 line placed in left femoral. Line placed by Tyson Pantoja MD Placement verified by blood return, Dressed with Tegaderm, Patient tolerated well. Before procedure, did Practitioner(s) obtain informed consent? Yes. Patient \T\ family education about procedure, CLABSI prevention and S/S of infection? Yes. Time-out/Briefing performed prior to start of procedure? Yes. Was handwashing/sanitizing done immediately prior to procedure? Yes. Was patient positioned to in a way to prevent air embolism? Yes. Was procedure site sterilized? Yes, with chlorhexidine. Was the site allowed to dry? Yes. Was local anesthetic and/or sedation utilized? Yes. During the procedure, did the Practitioner(s) maintain a sterile field? Yes. Were unused ports clamped during insertion? Yes. Was blood aspirated from each lumen? Yes. After the procedure, did the Practitioner(s) clean the site and apply a sterile dressing? Yes. 16:29 INITIATED TRANSFER WITH MEGAN AT [facility]. bc6 17:06 acceptance received with Megan for [facility] ICU 213. bc6 18:05 Report given to ICU nurse at [facility] in [place]. cm10 18:22 nancy with [facility] ambulance accepted transfer. bc6 18:29 Patient transferred, IV remains in place. cm10 18:30 Provided Education on: Need for transfer. cm10 18:48 Report given to Princess with [facility]. Pt stable for transfer at this time. cm10 Administered Medications: 13:04 Drug: NS 0.9% IV 1000 ml IV at 1000 ml once; to be given as a bolus over 60 minutes cm10 Route: IV; Rate: 1000 ml; Site: left wrist; 15:52 Follow up: IV Status: Completed infusion bp 13:51 Drug: NS 0.9% IV 1000 ml IV at 1000 ml once; to be given as a bolus over 60 minutes cm10 Route: IV; Rate: 1000 ml; Site: left wrist; 15:52 Follow up: IV Status: Completed infusion bp 16:45 Drug: NS 0.9% IV 1000 ml IV at 1000 ml once; to be given as a bolus over 60 minutes ll1 Route: IV; Rate: 1000 ml; Site: left femoral; 17:15 Follow up: Response: No adverse reaction; IV Status: Completed infusion; IV Intake: ll1 1000ml 16:47 Drug: Norepinephrine IV 0.1 mcg/kg/min IV at calculated rate See Administration ll1 Instructions; (Standard concentration 4 mg / 250 mL D5W); Recommended max rate 3 mcg/kg/min; Titrate 0.05 mcg/kg/min as often as every 5 minutes to achieve goal (see titration policy); Goal parameter MAP greater than 65 mmHg. Route: IV; Rate: calculated rate; Site: left femoral; 17:00 Follow up: Rate change 0.15 mcg/kg/min; MAP: 51 ll1 18:37 Follow up: Response: No adverse reaction; IV Status: Infusion continued upon transfer 10 16:48 Drug: Heparin ([place] Drip) 12 units/kg/[place] - ([place] [address] units, D5W IV 500 ml) IV at ll1 calculated rate Per protocol; Max initial rate 1000 units/hr {Co-Signature: bp (Nish Reynolds RN).} Route: IV; Rate: calculated rate; Site: left femoral; 18:37 Follow up: Response: No adverse reaction; IV Status: Infusion continued upon transfer 10 17:25 Drug: Vasopressin IV 0.03 units/min IV at calculated rate continuous Route: IV; Rate: ll1 calculated rate; Site: left femoral; 18:37 Follow up: Response: No adverse reaction; IV Status: Infusion continued upon transfer 10 18:22 Not Given (Other Intervention Used): ondansetron 4 mg IVP once; over 2 minutes ll1 18:22 Drug: Aspirin PO Chewable Tablet 324 mg PO once; 81 mg tablets x 4 Route: PO; ll1 18:37 Follow up: Response: No adverse reaction cm10 Medication: 18:27 VIS not applicable for this client. cm10 Intake: 17:15 IV: 1000ml; Total: 1000ml. ll1 Outcome: 15:49 ER care complete, transfer ordered by MD. ec2 18:29 Transferred by [facility] to [facility], Transfer cm10 form completed. 18:29 Condition: stable 18:29 Instructed on the need for transfer, 18:55 Patient left the ED. cm10 Signatures: Dispatcher [employer] EDMS Nish Reynolds, RN Polo Muir RN RN ll1 Rima Lechuga6 Dorita Pfeiffer RN RN cm10 Tyson Pantoja MD MD ec2 Nish Reynolds RN bp Corrections: (The following items were deleted from the chart) 15:46 12:30 BP 98 / 72; Pulse 59bpm; Resp 22bpm; Pulse Ox 100% RA; Temp 98.6F Axillary; cm10 bp
[2024-06-16] MEDS ORDERED: HEPARIN/D5W 25,000 UNIT/500 ML BAG IV ONE (16:19)
[2024-06-16] MEDS ORDERED: NOREPINEPHRINE BITARTRATE/D5W 4 MG/250 ML BAG IV ONE (16:19)
[2024-06-16] MEDS ORDERED: NA CHLORIDE 0.9% 1,000 ML ONE (16:19)
[2024-06-16] MEDS ORDERED: VASOPRESSIN 80 UNIT in NA CHLORIDE 0.9% 250 ML IV SCH (17:07)
[2024-06-16] MEDS ORDERED: ASPIRIN 81 MG CHEWABLE TABLET ONE (18:12)
[2024-06-16 19:28] VITALS: TEMP 98.6
[2024-06-16 19:39] VITALS: O2SAT 100
[2024-06-16 19:42] VITALS: BP 119/65
== END 2024-06-16 18:55 ==
LOC: ER 12:22
DX: I21.4 Non-ST elevation (NSTEMI) myocardial infarction (principal); R57.0 Cardiogenic shock; N17.9 Acute kidney failure, unspecified; I10 Essential (primary) hypertension; Z95.1 Presence of aortocoronary bypass graft; Z11.52 Encounter for screening for COVID-19
CPT/HCPCS: 96365; 96367; 96361; 87040; 85025; 36415; 85610; 80162; 83605; 85730; 84484; 80053; 74176; 71045; 99285; 36556; 87428; J7050; J7030 ×2; 93005